=== PATIENT | male | born 1955 | race Caucasian/White ===

== ENCOUNTER → 2023-11-13 06:10 | Day surgery (SDC) | payer MEDICARE, SELFPAY ==
[2023-11-13 12:43] LABS: Glucose - Point of Care 102 mg/dl (70-99)
== END ==
LOC: GI 06:10
PROVIDERS: ATTENDING PHYSICIAN Specialist
DX: Z12.11 Encounter for screening for malignant neoplasm of colon (principal); D12.2 Benign neoplasm of ascending colon; D12.3 Benign neoplasm of transverse colon; K63.5 Polyp of colon; K57.30 Diverticulosis of large intestine without perforation or abscess without bleeding; K29.70 Gastritis, unspecified, without bleeding; K31.7 Polyp of stomach and duodenum; R10.33 Periumbilical pain
CPT/HCPCS: 45385; 43239; 88305; 82962; 88342

== ENCOUNTER 2024-01-11 09:17 | Day surgery (SDC) | payer MEDICARE, SELFPAY ==
[2024-01-11] VITALS (11 sets, daily range): BP systolic 95–125; BP diastolic 55–81; BMI 28.7
[2024-01-11] MEDS: NSS 313 ML IV (10:39)
[2024-01-11] MEDS: NSS 1000 IV (12:45)
--- NOTE | 2024-01-11 12:47 | ITS.CL.CATH ---
Estate Administrator - Catheterization
Cardiac Catheterization
Procedure Report:
CARDIAC CATHETERIZATION REPORT
Date of Procedure: 01/11/2024
Referring: Jose Elias Ram MD
Indication: Recent episode of sustained VT with syncope requiring ICD shock while on exercise treadmill
HEMODYNAMIC DATA
AO: 118/63
LV: 118/26
LEFT VENTRICULOGRAPHY: The left ventricle is dilated. There is anterolateral and apical akinesis. The visually estimated ejection fraction is 25%
CORONARY ANGIOGRAPHY
Dominance: Right
Left Main: Normal
LAD: The proximal LAD stent placed in June 2021 for acute STEMI is widely patent with no restenosis. The remainder of the LAD system has mild luminal irregularities
Circumflex: Mild luminal irregularities
RCA: Mild luminal irregularities
Closure Device: None-the procedure was performed via the right radial artery. The Dani's test was normal prior to the procedure.
Radiation (mGy): 321
DAP (cm2.Gy): 26.8
Fluoroscopy time: 3.2 minutes
CONCLUSIONS
1: Elevated LVEDP
2: LVE with anterolateral and apical akinesis with EF 25%
3. Widely patent proximal LAD stent with otherwise mild residual CAD
4. Continue amiodarone 200 mg twice daily (recently started) and GDMT for LV dysfunction
Copy to: Jose Elias Ram MD, Vaughn Chiang DO
Jose Elias Ram MD, [facility], [facility]
--- NOTE | 2024-01-11 14:00 | PTCARENOTE ---
Report received from Brigette PAYAN for lunch relief. Patient resting comfortably without complaint at this time. VSS. Left radial puncture site clean, dry, & intact with radial band on.
== END 2024-01-11 15:40 | disposition home or self-care (01) ==
LOC: CATH 09:17
PROVIDERS: ATTENDING PHYSICIAN Internal Medicine Cardiovascular Disease; FAMILY PHYSICIAN Family Medicine
DX: I25.10 Atherosclerotic heart disease of native coronary artery without angina pectoris (principal); I51.7 Cardiomegaly; I47.29 Other ventricular tachycardia; R55 Syncope and collapse; Z95.5 Presence of coronary angioplasty implant and graft; I25.2 Old myocardial infarction; Z79.899 Other long term (current) drug therapy
CPT/HCPCS: 93458; C1894; Q9967

== ENCOUNTER → 2024-01-18 11:00 | Outpatient (REF) | payer MEDICARE, SELFPAY | LOC: HWRCS 11:00 | PROVIDERS: ATTENDING PHYSICIAN Internal Medicine Cardiovascular Disease; FAMILY PHYSICIAN Family Medicine | DX: I25.5 Ischemic cardiomyopathy (principal) | CPT/HCPCS: 93306 ==

== ENCOUNTER → 2024-02-22 07:55 | Outpatient (REF) | payer MEDICARE, SELFPAY | LOC: RSP 07:55 | PROVIDERS: ATTENDING PHYSICIAN Nurse Practitioner; FAMILY PHYSICIAN Family Medicine | DX: I47.20 Ventricular tachycardia, unspecified (principal) | CPT/HCPCS: 94727; 94729; 88738; 94010 ==

== ENCOUNTER 2024-08-05 20:26 | Inpatient (IN) | payer MEDICARE, SELFPAY ==
[2024-08-05] VITALS (9 sets, daily range): BP systolic 97–129; BP diastolic 56–78; BMI 29.5; BMI 29.2; BMI 28.7
[2024-08-05 15:43] LABS: % Basophils 0.6 % (0-2); % Eosinophils 1.6 % (0-6); % Immature Granulocytes 0.2 % (0-0.5); % Lymphocytes 15.2 % (20.5-51.1); % Monocytes 8.7 % (1.7-9.3); % Neutrophils 73.7 % (42.2-75.2); ALT (SGPT) 61 U/L (0-50); AST (SGOT) 52 U/L (17-59); Absolute Eosinophils 0.1 10^3/uL (0-0.7); Absolute Lymphocytes 0.9 10^3/uL (1.2-3.4); Absolute Monocytes 0.5 10^3/uL (0.1-0.6); Absolute Neutrophils 4.6 10^3/uL (1.4-6.5); Albumin 4.5 g/dl (3.5-5.0); Alkaline Phosphatase 55 U/L (38-126); Blood Urea Nitrogen 25 mg/dl (9-20); Calcium 9.6 mg/dl (8.4-10.2); Carbon Dioxide 25 mmol/L (22-30); Chloride 100 mmol/L (98-107); Estimated Creatinine Clearance 73 ml/min; Glucose 135 mg/dl (70-99); Hematocrit 48.9 % (39.0-52.0); Hemoglobin 16.3 g/dL (13.0-18.0); Mean Corp Hgb Conc. 33.3 g/dL (33.0-37.0); Mean Corpuscular Hgb 32.1 pg (27.0-31.0); Mean Corpuscular Volume 96.3 fL (80.0-94.0); Mean Platelet Volume 11.7 fL (7.4-10.4); Nucleated Red Blood Cells % 0 % (-); Platelet Count 152 10^3/uL (130-400); Potassium 4.3 mmol/L (3.5-5.1); Red Blood Cell Count 5.08 10^6/uL (4.70-6.10); Red Cell Dist. Width 13.7 % (11.5-14.5); Sodium 141 mmol/L (135-145); Total Bilirubin 1.3 mg/dl (0.2-1.3); White Blood Cell Count 6.2 10^3/uL (4.8-10.8); eGFR > 60.00
[2024-08-05 15:54] LABS: Troponin I 0.017 ng/ml
--- NOTE | 2024-08-05 15:54 | ED.GENMED ---
History of Present Illness
General
Chief Complaint: Chest Pain
Source: patient, records and spouse
Exam Limitations: none
Time Seen by Provider: 08/05/24 15:25
Nursing documentation reviewed up to this point in time: agreed with
History of Present Illness
History of Present Illness:
69-year-old male presents with chest pain onset an hour and a half ago while resting describes a pressure in his chest, did go to his jaw mildly short of breath, not nearly as severe as when he had his AR, took a nitroglycerin, called 911 was given
4 baby aspirin another nitroglycerin pain is almost gone when I saw him he has an AICD, apparently had VT while on a treadmill at the gym with syncope, takes Eliquis and aspirin, genetic scientist is Dr. Smithr transitioning to Dr. Hathaway does not use
NSAIDs does not drink alcohol
Past History
Past History
ED Past Medical History: Arrthythmia (Paroxysmal atrial fibrillation), CHF (Ischemic cardiomyopathy, EF of 20 to 25% July 2021), HTN, Hypercholesterolemia, NIDDM, AR (Large anterior wall STEMI July 18, 2021), Hypothyroidism, Other (Obesity,
chronic orthopedic pain maintained on medical marijuana, gastritis) and Other (History of arthritis)
ED Past Surgical History: Cardiac (PTCA with stent to the LAD July 18, 2021; A. fib cardioversion July 22, 2021), Cholecystectomy, Orthopedic (bilateral hip replacement, left knee replacement, right shoulder replacement) and Urological
(Vasectomy)
Social History
Tobacco: Non-smoker
Alcohol: None
Drug: Marijuana (Medical marijuana)
Personal:
Living: with family
Employment: Retired
Family History
Family History: CAD
Phy Exam
Physical Exam
Physical Exam:
Physical Exam
General: no apparent distress, not acutely ill
Neck: No JVD
Heart: s1/s2 regular rate and rhythm, no murmur. equal radial pulses.
Lungs: no acute respiratory distress. clear bilaterally
Abdomen: Nontender
Neuro: alert and oriented. no focal neurological deficits
Skin: no rash
Psychiatric: well kept. interactive and cooperative
Extremities: no edema. no calf tenderness.
Scores
Heart Score for Chest Pain Patients
STEMI patient?: No
History: Moderately Suspicious
ECG: Nonspecific Repolarization
Age: >/= 65 years
Risk Factors: >/= 3 Risk Factors or History of CAD
Troponin: >1 - <3 x Normal Limit
Heart Score for Chest Pain Patients: 7
Heart Score Risk: 72.7 % MACE over next 6 weeks
Course
Orders/Labs/Results
Orders:
Orders
08/05/24 14:58
EKG [Electrocardiogram (*1)] Urgent
Reason for Study: Chest Pain
EKG- Treatment ONCE
08/05/24 15:22
Complete Blood Count/With Diff Urgent
Comprehensive Metabolic Panel Urgent
Lipase Urgent
Troponin I Urgent
08/05/24 15:39
CR Chest - 2 Views Urgent
Comment:
Reason For Exam: cp
08/05/24 15:40
Add On- LAB Urgent
Tests Added?: lipase
Nitroglycerin Sublingual [Nitrostat (Sublingual)] 0.4 mg SL [id number] PRN
08/05/24 16:08
CARDIOLOGY CONSULT Urgent
Consulting Provider: Kishan Hallman
Was physician already notified: Yes
08/05/24 18:34
Troponin I Urgent
08/05/24 19:30
EKG [Electrocardiogram (*1)] Urgent
Reason for Study: Other
Other Reason for Exam: repeat due to increased trop
08/05/24 19:31
EKG- Treatment ONCE
Abnormal Lab Results
08/05/24 08/05/24
15:22 18:34
MCV 96.3 H fL
(80.0-94.0)
MCH 32.1 H pg
(27.0-31.0)
MPV 11.7 H fL
(7.4-10.4)
Absolute Lymphs (auto) 0.9 L 10^3/uL
(1.2-3.4)
Lymphocytes % 15.2 L %
(20.5-51.1)
BUN 25 H mg/dl
(9-20)
Glucose 135 H mg/dl
(70-99)
ALT 61 H U/L
(0-50)
Troponin I 1.600 H* D ng/ml
08/05/24 15:22
08/05/24 15:22
Vital Signs
Initial and Last Documented VS:
Initial Vital Signs
Pulse Resp
74 12
08/05/24 14:59 08/05/24 14:59
Last Documented Vital Signs
Temp Pulse Resp BP Pulse Ox
98.3 F 73 14 127/78 97
08/05/24 15:06 08/05/24 19:25 08/05/24 19:25 08/05/24 19:24 08/05/24 19:25
MDM/Problems Addressed
Differential Diagnosis Includes:
ACS reflux GERD pancreatitis doubt PE as he is anticoagulated
MDM/Problems Addressed:
Chest pain
Chronic conditions affecting care: DM, HTN, CAD and Cardiomyopathy
Acute Exacerbation and/or Progression of Chronic Illness: DM, HTN, CAD, Cardiomyopathy and Arrhythmia
*Radiology
Radiology exam reviewed: preliminary read by ED provider and radiology read reviewed
*Pulse Oximetry
Patient hypoxic: no
*EKG
Interpreted by ED Provider?: Yes
Interpretation: abnormal
Comparison EKG: no comparison EKG present
Heart Rate: 7
Rate: normal
Rhythm: ventricular paced
Ischemia: non-specific ST changes
*Butcher Supervisor Interpretation
Rate: normal
Interpretation: normal
Heart Rate: 78
Rhythm: ventricular paced
*Critical Care Note
Total Time (30-74mins, 75-104mins- exclusive of procedures): 31
comment:
31
Update Note
Update Note:
4 PM, troponin noted, chest x-ray pending consult requested from cardiology
7:30 PM second troponin noted, patient resting comfortably, reviewed with cardiology admit to the hospitalist service hold Eliquis start unfractionated heparin
ED Attending Note
-
Portions of this chart may have been created with voice recognition software.� Occasional wrong word or��sound alike� substitutions may have occurred due to the inherent limitations of voice recognition software.
Discharge Plan
Departure
Patient Disposition: Admit
Date of Disposition: 08/05/24
Time of Disposition: 19:35
Admit to: IVU
Presentation/result/management discussed w/ accepting MD/DO: Hospitalist
Patient with high blood pressure during this ER visit?: No
Discharge Problem:
ACS (acute coronary syndrome)
Prescriptions:
No Action
aspirin 81 mg Tablet,Delayed Release (Dr/Ec)
81 mg PO DAILY
nitroglycerin [Nitrostat] 0.4 mg Tablet, Sublingual
0.4 mg SUBLINGUAL Q5M PRN (Reason: Chest Pain)
atorvastatin 40 MG tablet
40 mg PO HS
levothyroxine 50 mcg Capsule
50 mcg PO DAILY
Centrum Silver Men [id number] mcg Tablet
1 tab PO DAILY
Eliquis 5 mg Tablet
5 mg PO BID
amiodarone 200 mg Tablet
200 mg PO BID
Jardiance 10 mg Tablet
10 mg PO DAILY
triamcinolone acetonide 0.1 % cream
1 applic TOPICAL BIDPRN PRN (Reason: rash areas on back, arms)
lisinopril 2.5 mg tablet
2.5 mg PO BID
Referrals:
Vaughn Chiang, DO [Family Provider] -
Interventions
Interventions:
*Risk Screen - Suicide Last Done: 08/05/24 15:06
*General Assessment Last Done: 08/05/24 15:06
*Neglect/Abuse Screening Last Done: 08/05/24 15:06
ED- Fall Risk Assessment Last Done: 08/05/24 15:17
*ED COVID-19 Vaccine History Last Done: 08/05/24 15:06
ED- Cardiac Assessment Last Done: 08/05/24 15:17
Discharge Date and Time
Print Language: KAZAKH
--- NOTE | 2024-08-05 16:32 | CON.CAR ---
Addendum entered and electronically signed by Kishan Hallman MD 08/05/24 18:32:
69 yo male with PMH of CAD s/p LAD stent 2020, ICM EF 20-25%, VT, BiV ICD presents to ED with chest pain. Approx 1 hour after lunch, he was sitting at desk paying bills, and experienced mid sternal chest pain. He took SL nitro, and called EMS.
EMS gave additional SL nitro, and transported to ED. Patient also reports belching as well. Patient chest pain free in ED. The pain feels different from prior MT. Exam with RRR, no murmurs, no edema. EKG shows BiV pacing. TnI 0.017. Last cath
12/2023 showed patent LAD stents, and LI otherwise. Care Link: no arrhythmias.
Chest pain is different from prior MT. Could be GI in origin.
Will check second troponin: if trending up, will be admitted for additional evaluation. If remains normal, will follow up in outpatient setting.
Original Note:
Consultation
Consultation Request
Date/Time Consultation Requested: 08/05/2024 16:10
Date/Time Consultation Performed: 08/05/2024 16:15
Requesting Provider: Dr. Horne
Performing Provider: JAMEEL Arndt for Dr. Hallman
Reason for Consultation: Chest pain
Medical History
-
Chief Complaint: Chest pain
History of Present Illness:
Patient is a 69-year-old male (known to Dr. Ram, his primary spray dyer), with ischemic cardiomyopathy (LVEF 20-25%), ventricular tachycardia status post BiV ICD (on amiodarone), coronary artery disease (LAD stent), and paroxysmal atrial
fibrillation who presented to the emergency department with a chief complaint of chest discomfort. At approximately 2 PM he had the sudden onset of chest tightness. It was midsternal and anterior. It started at 4/10 and worsened to 7/10 prompting
him to take a sublingual nitroglycerin. He had weakness in his right hand. He started belching. He had lunch 1 hour prior ([employer]). Very briefly he had jaw discomfort (less than 30 seconds). He called EMS. EMS gave him aspirin 324
mg and an additional sublingual nitroglycerin. He is currently chest pain-free in the emergency department.
Brief history: In December 2023 he had an episode of ventricular tachycardia that degenerated to ventricular fibrillation requiring ICD shock. At that time he was at the gym and on the treadmill when he became lightheaded and had syncope. Cardiac
catheterization demonstrated patent LAD stent and mild luminal irregularities in the RCA and left circumflex. His LVEF was unchanged at 25-30%.
Past Medical History
Past Medical History: Arrhythmias (Paroxysmal atrial fibrillation, ventricular tachycardia), CAD, CHF (HFrEF, ICM), Hypercholesterolemia and Hypothyroidism
Past Surgical History: Cholecystectomy and Orthopedic
Social History
Tobacco: Non-Smoker
Alcohol: None
Drug: None
Personal:
Living: With Family
Employment: Retired
Family History
Family History: Reviewed & Not Pertinent
Allergies / Home Medications
Allergy/AdvReac Type Severity Reaction Status Date / Time
No Known Allergies Allergy Verified 01/11/24 09:24
�Medication �Instructions �Recorded �Confirmed �Type
aspirin 81 mg tablet,delayed 81 mg PO DAILY Blood Clot 11/14/22 08/05/24 History
release Prevention/Tx
atorvastatin 40 mg tablet 40 mg PO HS High Cholesterol 11/14/22 08/05/24 History
levothyroxine 50 mcg capsule 50 mcg PO DAILY hypothyroidism 11/14/22 08/05/24 History
nitroglycerin 0.4 mg sublingual 0.4 mg sublingual Q5M PRN Chest 11/14/22 08/05/24 History
tablet (Nitrostat) Pain
amiodarone 200 mg tablet 200 mg PO BID Heart 01/11/24 08/05/24 History
Disease/Condition
apixaban 5 mg tablet (Eliquis) 5 mg PO BID Blood Clot 01/11/24 08/05/24 History
Prevention/Tx
empagliflozin 10 mg tablet 10 mg PO DAILY Heart 01/11/24 08/05/24 History
(Jardiance) Disease/Condition
skoliumq-kk-dgdve 300 mcg-K 60 1 tab PO DAILY Supplement 01/11/24 08/05/24 History
mcg-lycop 600 mcg-lutein 300 mcg
tablet (Centrum Silver Men)
lisinopril 2.5 mg tablet 2.5 mg PO BID Blood Pressure 08/05/24 08/05/24 History
triamcinolone acetonide 0.1 % 1 applic topical BIDPRN PRN rash 08/05/24 08/05/24 History
topical cream areas on back, arms
Review of Systems
-
History Source: Patient
All other systems: Negative unless noted
Constitutional: No Symptoms
EENT: No Symptoms
Respiratory: No Symptoms
Cardiac: No Symptoms
Abdomen/GI: No Symptoms
: No Symptoms
Musculoskeletal: No Symptoms
Skin: No Symptoms
Neurological: No Symptoms
Endocrine: No Symptoms
Hematologic/Lymphatic: No Symptoms
Physical Exam
Vital Signs
Temp Pulse Resp BP Pulse Ox
98.3 F 57 12 129/64 97
08/05/24 15:06 08/05/24 16:00 08/05/24 16:00 08/05/24 16:00 08/05/24 16:00
Lab Results
08/05/24 15:22
08/05/24 15:22
Troponin I 0.017 ng/ml 08/05/24 15:22
Physical Exam
General: Well Developed, Well Nourished, No Apparent Distress and Comfortable
HEENT: Normocephalic, Anicteric and Moist Mucous Membranes
Respiratory: Clear and Non Labored Respirations
Cardiac: S1/S2 and Regular Rhythm; Negative Peripheral Edema
Breast: Deferred by me
GI: Soft, Non Tender, Non Distended and Normal Bowel Sounds
Rectal: Deferred by Provider
Genito-urinary: Costovertebral Angle Tend
Musculoskeletal: No Clubbing, No Cyanosis and No Edema
Skin: Warm and Dry
Neuro: AO x 3
Hematologic/Lymphatic: No Lymphadenopathy
Psych: Calm
Impression / Plan
-
Chest pain
-Currently chest pain-free
-EKG shows AV pacing
-Initial troponin 0.017
-CXR pending
Ischemic cardiomyopathy (LVEF 25 to 30%)
-He does not appear to be in acute/decompensated heart failure
-He does not require standing diuretic to maintain euvolemia
-GDMT is limited by blood pressure
-SYLVIA/ARB/ARNI: Lisinopril 2.5 mg twice daily (he did not tolerate Entresto)
-SGLT2: Jardiance 10 mg daily
-ICD: Medtronic
-Continue daily weight and low-sodium diet
Coronary artery disease
-STEMI 06/2021 with pLAD occlusion status post PCI, peak troponin >400
-C 12/2023 showed patent LAD stent and mild luminal irregularities in RCA and left circumflex, medical management
-He is on apixaban/ASA and atorvastatin
Paroxysmal atrial fibrillation
Ventricular tachycardia, status post Medtronic BiV ICD, on amiodarone (started after ICD shock)
HLD, on atorvastatin
Prediabetes
Data Reviewed
-
EKG: Report Reviewed by me (AV paced rhythm, rate 72)
Medical Tests (Nuc Med, Echo etc): Report Reviewed by me (Prior echocardiogram and cardiac catheterization as above)
Labs: Labs Reviewed by me
Old Records: Reviewed
[2024-08-05 17:14] LABS: Lipase 235 U/L (23-300)
--- NOTE | 2024-08-05 20:13 | HPS.HSE ---
Addendum entered and electronically signed by Will Sales DO 08/05/24 21:37:
Patient seen and examined independently. Agree with findings and plan as set forth by Tiffanie Herbert PA-C.
Patient is a 69y M with PMH significant for ASCVD, HTN and A-Fib who presents to ED complaining of chest pain. Patient reports substernal chest tightness that started around 2PM this afternoon while at rest. Some radiation to the jaw. No
associated nausea, dyspnea, diaphoresis, etc.
In the ED, patient is noted to have significant elevation in troponin on the second set.
He is currently pain-free.
Ass:
NSTEMI
ASCVD
Ischemic Cardiomyopathy
Paroxysmal Atrial Fibrillation
VT s/p AICD
Benign Hypertension
Hypothyroidism
Impaired Fasting Glucose
Plan:
Admit to IVU for further evaluation and treatment.
Continue IV heparin gtt.
Follow troponin to peak.
Follow for any new / recurrent symptoms during stay.
Appreciate Cardiology evaluation. Likely for cath in the AM.
Check lipid panel, A1C, etc.
Continue amiodarone, ASA, etc.
Original Note:
Family Physician
-
Family Physician: Vaughn Chiang
Chief Complaint
-
Chest Pain
History of Present Illness
Patient is a 69 y/o male past medical history of CAD s/p LAD Stent, ICM, HTN, A-Fib, Pre-Diabetes who presents with chest pain. Patient reports acute onset of mid-sternal chest tightness around 2PM this afternoon. He reports pain worsened prompting
to him to call EMS. Prior to EMS he did take a SL nitro, and EMS gave him a second dose. He reports symptoms improved, and he was chest pain free upon my evaluation.
Medical History
Past Medical History
Past Medical History: Reports Other
Additional Past Medical History:
Coronary Artery Disease s/p LAD Stent in 2020
Ischemic Cardiomyopathy (EF 20-25%)
Paroxysmal Atrial Fibrillation
Ventricular Tachycardia s/p BiV ICD
Essential Hypertension
Pre-Diabetes
Hyperlipidemia
Hypothyroidism
Past Surgical History: Reports Other
Additional Past Surgical History:
Cholecystectomy
Bilateral Shoulder Replacements
Bilateral Hip Replacements
Left Knee Replacement
Social History
Tobacco: Non-smoker
Alcohol: Occasional
Family History
Family History: Not pertinent
Allergies / Home Medications
Allergies reflects when Allergies were last updated in [facility].
Home Medications with original date entered in [facility]
Allergy/Medication List:
Allergies
Allergy/AdvReac Type Severity Reaction Status Date / Time
No Known Allergies Allergy Verified 01/11/24 09:24
Home Medications
aspirin 81 mg tablet,delayed release 81 mg PO DAILY Blood Clot Prevention/Tx 11/14/22
atorvastatin 40 mg tablet 40 mg PO HS High Cholesterol 11/14/22
levothyroxine 50 mcg capsule 50 mcg PO DAILY hypothyroidism 11/14/22
nitroglycerin 0.4 mg sublingual tablet (Nitrostat) 0.4 mg sublingual Q5M PRN Chest Pain 11/14/22
amiodarone 200 mg tablet 200 mg PO BID Heart Disease/Condition 01/11/24
apixaban 5 mg tablet (Eliquis) 5 mg PO BID Blood Clot Prevention/Tx 01/11/24
empagliflozin 10 mg tablet (Jardiance) 10 mg PO DAILY Heart Disease/Condition 01/11/24
omsrjkhb-fo-mkjgw 300 mcg-K 60 mcg-lycop 600 mcg-lutein 300 mcg tablet (Centrum Silver Men) 1 tab PO DAILY Supplement 01/11/24
lisinopril 2.5 mg tablet 2.5 mg PO BID Blood Pressure 08/05/24
triamcinolone acetonide 0.1 % topical cream 1 applic topical BIDPRN PRN rash areas on back, arms 08/05/24
Review of Systems
-
A 12 point ROS was completed and negative except as noted: Yes
Constitutional: Denies Fever or Chills
Respiratory: Denies Cough or Trouble Breathing
Cardiac: Reports See HPI
Physical Exam
Vital Signs
Vital Signs
Temp Pulse Resp BP Pulse Ox
98.3 F 73 14 127/78 97
08/05/24 15:06 08/05/24 19:25 08/05/24 19:25 08/05/24 19:24 08/05/24 19:25
Physical Exam
General: Comfortable and Conversant
HEENT: Anicteric and Moist mucous membranes
Respiratory: Clear and Non Labored Respirations
Cardiac: S1/S2 and Regular Rhythm
GI: Soft and Non Tender
Rectal: Deferred by Provider
Musculoskeletal: No Clubbing, No Cyanosis and No Edema
Skin: Warm and Dry
Neuro: Awake, Alert, Oriented and Nonfocal/grossly intact
Psych: Calm
Laboratory Results
-
08/05/24 15:22
08/05/24 15:22
Laboratory Results
Total Bilirubin 1.3 mg/dl (0.2-1.3) 08/05/24 15:22
AST 52 U/L (17-59) 08/05/24 15:22
ALT 61 U/L (0-50) H 08/05/24 15:22
Alkaline Phosphatase 55 U/L (38-126) 08/05/24 15:22
Troponin I 1.600 ng/ml H* D 08/05/24 18:34
Lipase 235 U/L (23-300) 08/05/24 15:22
Data Reviewed
-
Lab Data: Labs Reviewed by me
Impression/Plan
-
NSTEMI / ACS
-Consult Cardiology
-Continue heparin drip
-Continue Nitro SL PRN
-NPO after midnight for likely cardiac cath in AM
Coronary Artery Disease s/p LAD Stent in 2020
-Continue aspirin
Ischemic Cardiomyopathy (EF 20-25%)
-Jardiance on hold
-Monitor Is&Os and Daily Weights
Paroxysmal Atrial Fibrillation
-Heparin drip in place of Eliquis
-Continue amiodarone
Ventricular Tachycardia s/p BiV ICD
-Continue Amiodarone
Essential Hypertension
-Continue lisinopril
Hyperlipidemia
-Continue Lipitor
Pre-Diabetes
-Check HgbA1c
Hypothyroidism
-Continue levothyroxine
DVT proph: Heparin Drip
Code Status: Full Code
[2024-08-05 20:33] LABS: APTT 33.4 Sec (23.4-35.0)
[2024-08-05] MEDS: HEPARIN 4000 UNITS IV (20:45)
[2024-08-05] MEDS: HEPARIN 25000 UNITS/250 ML IV (20:46)
[2024-08-05] MEDS: PACERONE 200 MG PO (22:28)
[2024-08-05] MEDS: LIPITOR 40 MG PO (22:28)
--- NOTE | 2024-08-05 23:34 | PTCARENOTE ---
Pt rec'd from ED awake,alert no c/o cp or sob. adm hx taken and recorded Heparin gtt infusing via left hand. 3rd troponin resulted at 3.310. Pt aware of npo status after mn for cath in am. Spouse at bedside wants to stay the night.
[2024-08-06] VITALS (15 sets, daily range): BP systolic 90–120; BP diastolic 55–78; BMI 28.4
[2024-08-06 03:48] LABS: APTT 86.6 Sec (23.4-35.0)
[2024-08-06 04:05] LABS: Blood Urea Nitrogen 21 mg/dl (9-20); Carbon Dioxide 26 mmol/L (22-30); Chloride 105 mmol/L (98-107); Estimated Creatinine Clearance 80 ml/min; Glucose 86 mg/dl (70-99); HDL Cholesterol 59 mg/dl; LDL Cholesterol, Calculated 22 mg/dl; Sodium 141 mmol/L (135-145); Total Cholesterol 89 mg/dl (50-199); Triglyceride 43 mg/dl (10-149); Very Low Density Lipoprotein 8 mg/dl (0-30); eGFR > 60.00
[2024-08-06 04:08] LABS: Hematocrit 43.7 % (39.0-52.0); Hemoglobin 14.6 g/dL (13.0-18.0); Mean Corp Hgb Conc. 33.4 g/dL (33.0-37.0); Mean Corpuscular Hgb 32.2 pg (27.0-31.0); Mean Corpuscular Volume 96.3 fL (80.0-94.0); Mean Platelet Volume 11.4 fL (7.4-10.4); Platelet Count 136 10^3/uL (130-400); Red Blood Cell Count 4.54 10^6/uL (4.70-6.10); Red Cell Dist. Width 13.7 % (11.5-14.5); White Blood Cell Count 6.4 10^3/uL (4.8-10.8)
[2024-08-06] MEDS: SYNTHROID 50 MCG PO (07:11)
[2024-08-06] MEDS: PACERONE 200 MG PO ×2 (08:37→20:04)
[2024-08-06] MEDS: ASPIR LOW (ENTERIC COATED) 81 MG PO (08:37)
[2024-08-06 08:38] LABS: Glycohemoglobin (HgbA1c) 5.2 % (4.0-5.6)
[2024-08-06] MEDS: ZESTRIL 2.5 MG PO ×2 (08:38→20:06)
--- NOTE | 2024-08-06 11:14 | CM ---
Chart reviewed. Patient is independent of ADLS, lives with his in a [address], 0 [address]SE RAUL, 0 DME. Plan is for the patient to return home. CM to follow
[2024-08-06 11:51] LABS: APTT 71.8 Sec (23.4-35.0)
--- NOTE | 2024-08-06 12:43 | ITS.CL.CATH ---
Neon Tube Bender - Catheterization
Cardiac Catheterization
Procedure Report:
CARDIAC CATHETERIZATION REPORT
Date of Procedure: 08/06/2024
Referring: Zana Hallman MD, PhD
Indication: Non-STEMI
�
HEMODYNAMIC DATA
AO: 108/59
LV: 108/21
�
LEFT VENTRICULOGRAPHY: Dilated left ventricle with severe anterolateral and anteroapical hypokinesis. The visually estimated EF is 30%
�
CORONARY ANGIOGRAPHY
Dominance: Right
Left Main: Normal
LAD: There is a widely patent stent with no restenosis extending from near the ostium of the LAD into the midportion (LIAM 2020). The remainder of the LAD system has mild luminal irregularities
Circumflex: Mild luminal irregularities
RCA: Mild luminal irregularities in the RCA proper. The RPDA has diffuse disease
�
Closure Device: 6 [place] Angio-Seal RFA. Of note the right radial artery pulse was absent and we performed the procedure from the RFA
�
Radiation (mGy): 346
DAP (cm2.Gy): 27.1
Fluoroscopy time: 1.7 minutes
�
CONCLUSIONS
1:�Dilated LV with severe anterolateral and anteroapical hypokinesis with EF 30%-this is similar to the prior study from December 2023 and may actually be slightly improved
2:�Stable CAD as described. There is no obvious culprit for his non-STEMI (peak Trop 3.4)-cannot exclude the mid RPDA as a culprit lesion sitel but clearly no appropriate interventional target in this small branch
�
�
Copy to: Jose Elias Ram MD, Vaughn Chiang,
�
Jose Elias Ram MD, [facility], [facility]
[2024-08-06] MEDS: NSS 1000 IV (13:04)
--- NOTE | 2024-08-06 13:57 | W.PN.HOSP.TC ---
Today's Communication/Plan
-
Left heart catheterization report reviewed
Await further recommendation from cardiology
Assessment / Plan
Assessment / Plan
LHC
Left Main: Normal
LAD: There is a widely patent stent with no restenosis extending from near the ostium of the LAD into the midportion (LIAM 2020). The remainder of the LAD system has mild luminal irregularities
Circumflex: Mild luminal irregularities
RCA: Mild luminal irregularities in the RCA proper. The RPDA has diffuse disease

Chest pain
NSTEMI
h/o Coronary Artery Disease s/p LAD Stent in 2020
-Status post left heart catheterization showing patent LAD stents. EF 30%, identical to previous echocardiogram
-Patient on GDMT,
-Cardio to decide further management plan
Ischemic Cardiomyopathy (EF 20-25%)
Chronic systolic HF
-Resumption of meds post cath per cardiology
-No signs of heart failure exacerbation on exam today
-Monitor Is&Os and Daily Weights
Paroxysmal Atrial Fibrillation
-Heparin drip in place of Eliquis
-Continue amiodarone
Ventricular Tachycardia s/p BiV ICD
-Continue Amiodarone
Essential Hypertension
-Continue lisinopril
Hyperlipidemia
-Continue Lipitor
Pre-Diabetes
-Hbga1c 5.2
Hypothyroidism
-Continue levothyroxine
DVT proph: Heparin Drip
Code Status: Full Code
Anticipated Discharge: Within 24 hours
Subjective/Interval History
-
Date of Service: August 06, 2024
Denies of having any chest pain overnight
No dyspnea
Has some bloating, denies of nausea/constipation
Objective Data
-
Labs:
Laboratory Results
08/06/24 08/06/24 08/06/24
03:24 03:25 11:23
WBC 6.4
Hgb 14.6
Hct 43.7
Plt Count 136
APTT 86.6 H 71.8 H
Sodium 141
Potassium 4.0
Chloride 105
Carbon Dioxide 26
BUN 21 H
Creatinine 1.1
Glucose 86
Calcium 9.0
Vital Signs:
Vital Signs
Temp Pulse Resp BP Pulse Ox
98.3 F 71 18 120/78 95
08/06/24 12:40 08/06/24 11:30 08/06/24 12:40 08/06/24 08:38 08/06/24 12:40
I&O
08/05/24 08/06/24 08/07/24
06:59 06:59 06:59
Intake Total 240 / 240
Balance 240 / 240
Review of Systems
-
Respiratory: Reports No Symptoms
Cardiac: Denies Chest Pain, Diaphoresis or Palpitations
Abdomen/GI: Reports Bloated; Denies Nausea, Vomiting or Constipated
Physical Exam
-
General: Comfortable and Morbidly Obese
HEENT: Negative Oxygen
Respiratory: Clear to Auscultation
Cardiac: Regular Rhythm and S1/S2; Negative Murmur or Rub
GI: Soft, Nontender, Nondistended and Normal Bowel Sounds
Musculoskeletal: No Edema
Neuro: Awake, Alert, Oriented, No Motor Deficits and Nonfocal/Grossly Intact
Psych: Calm
[2024-08-06] MEDS: ELIQUIS 5 MG PO (20:03)
[2024-08-06] MEDS: LIPITOR 40 MG PO (22:38)
--- NOTE | 2024-08-07 00:05 | PTCARENOTE ---
Rec'd pt at change of shift. Pt AAO*3, in AV Paced rhythm on TELE montior, and VSS. Pt denies any pain or discomfort. Pt with R femoral dressing CDI. Pt agreed to report any bleeding or tenderness at site immediately. Pt updated on plan of care
and currently resting with call rodarte in reach. Plan of care ongoing.
[2024-08-07 02:05] VITALS: BP 107/68
[2024-08-07 02:19] VITALS: BP 107/68
[2024-08-07 03:34] LABS: Blood Urea Nitrogen 21 mg/dl (9-20); Calcium 8.8 mg/dl (8.4-10.2); Carbon Dioxide 27 mmol/L (22-30); Chloride 103 mmol/L (98-107); Estimated Creatinine Clearance 80 ml/min; Glucose 100 mg/dl (70-99); Potassium 4.2 mmol/L (3.5-5.1); Sodium 141 mmol/L (135-145); eGFR > 60.00
[2024-08-07 03:35] LABS: Hematocrit 44.3 % (39.0-52.0); Hemoglobin 14.8 g/dL (13.0-18.0); Mean Corp Hgb Conc. 33.4 g/dL (33.0-37.0); Mean Corpuscular Volume 95.7 fL (80.0-94.0); Mean Platelet Volume 12.1 fL (7.4-10.4); Platelet Count 150 10^3/uL (130-400); Red Blood Cell Count 4.63 10^6/uL (4.70-6.10); Red Cell Dist. Width 13.9 % (11.5-14.5); White Blood Cell Count 5.3 10^3/uL (4.8-10.8)
[2024-08-07 03:52] VITALS: BMI 28.5
[2024-08-07 04:04] LABS: TSH 2.22 uIU/ml (0.47-4.68)
[2024-08-07] MEDS: SYNTHROID 50 MCG PO (05:48)
[2024-08-07 07:09] VITALS: BP 101/58
--- NOTE | 2024-08-07 07:43 | PTCARENOTE ---
Received patient this morning sitting oob in the chair waiting for breakfast, states he feels good. Dressing right groin is dry and intact with a strong palpable pedal pulse. Call rodarte in reach.
[2024-08-07] MEDS: ASPIR LOW (ENTERIC COATED) 81 MG PO (08:39)
[2024-08-07] MEDS: ELIQUIS 5 MG PO (08:40)
[2024-08-07] MEDS: PACERONE 200 MG PO (08:40)
[2024-08-07] MEDS: ZESTRIL PO (08:40)
[2024-08-07] MEDS: FLUSH (NSS) 1 FLUSH IV (08:41)
--- NOTE | 2024-08-07 09:11 | W.PN.CD ---
Today's Communication / Plan
-
meds have been limited by BP
add Toprol XL 12.5mg qHS
continue lisinopril 2.5mg bid, and jardiance
continue ASA/eliquis
d/c planning
please call us with additional questions
Impression / Plan
-
ACS/NSTEMI
-no culprit on cath, EF 30%
-no arrhythmia on [facility] or tele
-discussed with interventional cards: continue ASA/eliquis
- meds have been limited by BP as outpatient
-will try adding low dose Toprol XL at bedtime
Ischemic cardiomyopathy (LVEF 25 to 30%)
-He does not appear to be in acute/decompensated heart failure
-He does not require standing diuretic to maintain euvolemia
-GDMT is limited by blood pressure
-SYLVIA/ARB/ARNI/MRA: Lisinopril 2.5 mg twice daily (he did not tolerate Entresto)
-SGLT2: Jardiance 10 mg daily (resume on d/c)
-ICD: Medtronic
-Continue daily weight and low-sodium diet
Coronary artery disease
-STEMI 06/2021 with pLAD occlusion status post PCI, peak troponin >400
-[facility] 12/2023 showed patent LAD stent and mild luminal irregularities in RCA and left circumflex, medical management
-He is on apixaban/ASA and atorvastatin
Paroxysmal atrial fibrillation
Ventricular tachycardia, status post Medtronic BiV ICD, on amiodarone (started after ICD shock)
HLD, on atorvastatin: LDL is 22
Prediabetes
Physical Exam
Vital Signs/Labs
Vital Signs
Temp Pulse Resp BP Pulse Ox
98.2 F 50 18 101/58 98
08/07/24 07:05 08/07/24 08:40 08/07/24 07:05 08/07/24 08:40 08/07/24 07:05
08/06/24 08/07/24 08/08/24
06:59 06:59 06:59
Actual Weight 107 kg 106.2 kg
08/07/24 02:15
08/07/24 02:15
APTT 71.8 Sec (23.4-35.0) H 08/06/24 11:23
Triglycerides 43 mg/dl (10-149) 08/06/24 03:24
LDL Cholesterol, Calc 22 mg/dl 08/06/24 03:24
VLDL Cholesterol, Calc 8 mg/dl (0-30) 08/06/24 03:24
HDL Cholesterol 59 mg/dl 08/06/24 03:24
TSH 2.22 uIU/ml (0.47-4.68) 08/07/24 02:15
LAB Results
08/05/24 08/05/24 08/05/24
15:22 18:34 22:21
Troponin I 0.017 1.600 H* D 3.310 H* D
08/06/24
03:25
Troponin I 3.120 H*
Physical Exam
Constitutional: No acute distress and Comfortable
EENT: Moist mucous membranes
Cardiovascular: Rhythm & rate is regular, Pedal edema is absent, JVD pressure is normal and Systolic murmur absent
Respiratory: Respiratory effort normal and Lungs clear to auscul.
GI: Soft and Distention absent
Neuro/Psych: AO x 3
Data Reviewed
-
Date of Service: August 07, 2024
EKG: Other (Tele: BiV paced, no arrhythmia)
Labs: Labs Reviewed by me
[2024-08-07 10:54] VITALS: BP 107/73
[2024-08-07] MEDS: FARXIGA 10 MG PO (11:06)
[2024-08-07] MEDS: FLUAD (65 yr+) 2024-2025 FORMULA 0.5 ML IM (11:06)
--- NOTE | 2024-08-07 12:25 | PTCARENOTE ---
Patient seen by cardiology and the hospitalist and is ok for discharge home. Reviewed discharge instructions with the patient and his and they state their understanding. Patient discharged home with his , aware of follow up appointments
scheduled.
--- NOTE | 2024-08-07 15:04 | W.PN.HOSP.TC ---
Today's Communication/Plan
-
d/c home
Assessment / Plan
Assessment / Plan
LHC
Left Main: Normal
LAD: There is a widely patent stent with no restenosis extending from near the ostium of the LAD into the midportion (LIAM 2020). The remainder of the LAD system has mild luminal irregularities
Circumflex: Mild luminal irregularities
RCA: Mild luminal irregularities in the RCA proper. The RPDA has diffuse disease

Chest pain
NSTEMI
h/o Coronary Artery Disease s/p LAD Stent in 2020
-Status post left heart catheterization showing patent LAD stents. EF 30%, identical to previous echocardiogram
-Patient on GDMT,
-Cardio recommended patient to be added on Toprol-XL 12 and half milligram at night
-Possible theory of anginal symptoms versus small clot causing initial symptoms
Ischemic Cardiomyopathy (EF 20-25%)
Chronic systolic HF
-Resumption of meds post cath per cardiology
-No signs of heart failure exacerbation on exam today
-Monitor Is&Os and Daily Weights
Paroxysmal Atrial Fibrillation
-Heparin drip in place of Eliquis
-Continue amiodarone
Ventricular Tachycardia s/p BiV ICD
-Continue Amiodarone
Essential Hypertension
-Continue lisinopril
Hyperlipidemia
-Continue Lipitor
Pre-Diabetes
-Hbga1c 5.2
Hypothyroidism
-Continue levothyroxine
DVT proph: Heparin Drip
Code Status: Full Code
Anticipated Discharge: Today
Subjective/Interval History
-
Date of Service: August 07, 2024
No further episode of chest pain overnight
No other reported issues
Objective Data
-
Labs:
Laboratory Results
08/07/24
02:15
WBC 5.3
Hgb 14.8
Hct 44.3
Plt Count 150
Sodium 141
Potassium 4.2
Chloride 103
Carbon Dioxide 27
BUN 21 H
Creatinine 1.1
Glucose 100 H
Calcium 8.8
Vital Signs:
Vital Signs
Temp Pulse Resp BP Pulse Ox
97.7 F 57 18 107/73 98
08/07/24 10:57 08/07/24 10:54 08/07/24 10:57 08/07/24 10:54 08/07/24 10:57
I&O
08/06/24 08/07/24 08/08/24
06:59 06:59 06:59
Intake Total 240 / 240 770 / 770 480 / 480
Balance 240 / 240 770 / 770 480 / 480
Review of Systems
-
Respiratory: Reports No Symptoms
Cardiac: Reports No Symptoms
Abdomen/GI: Reports No Symptoms
Physical Exam
-
General: Comfortable and Morbidly Obese
HEENT: Negative Oxygen
Respiratory: Clear to Auscultation
Cardiac: Regular Rhythm and S1/S2; Negative Murmur or Rub
GI: Soft, Nontender, Nondistended and Normal Bowel Sounds
Musculoskeletal: No Edema
Neuro: Awake, Alert, Oriented, No Motor Deficits and Nonfocal/Grossly Intact
Psych: Calm
--- NOTE | 2024-08-07 17:08 | W.DCSUMMARY ---
Discharge Summary
Discharge Data
Date of Admission: 08/05/24
Date of Discharge: 08/07/24
-
Pending Results: No
Hospital Course
Discharging Physician : Dr Brandon Ferris
Disposition : Home
Primary care physician : Dr Vaughn Chiang
Principal Discharge diagnosis :
Unstable angina
Chronic Discharge diagnosis :
Ischemic cardiomyopathy
Chronic systolic congestive heart failure
Paroxysmal atrial fibrillation
History of ventricular tachycardia post biventricular defibrillator
Essential hypertension
Hyperlipidemia
Prediabetic
Hypothyroidism
Hospital Course :
Patient is a 69-year-old male with mentioned past medical history came to ER for new onset of sternal chest pain/tightness while patient was resting. Patient had some radiation of the pain to jaw, not associated with any nausea/diaphoresis. EKG
showing paced rhythm. Troponin was minimally elevated and there was concern of patient having new ACS with known history of coronary artery disease/ischemic cardiomyopathy. Patient was started on heparin drip and cardiology was involved in care.
Patient was taken to heart cath following day which showed clean coronaries with patent LAD stent, some distal PDA disease although not attributable to patient symptoms pattern. ICD did not have any tachyarrhythmia episodes. Patient was started on
Toprol by cardiology. Potential explanation for patient chest pain episode is possible vasospastic angina versus small coronary clot which resolved by itself. Patient was discharged to home at this point with follow-up with cardiology in office.
Important imaging findings :
None
Procedure findings :
None
Discharge Plan
-
Patient Disposition: Home (Routine Discharge)
Discharge Diagnosis/Procedures: cardiac catheterization, Elevated troponin, Chest pain
Condition: Fair
Diet: Low Fat and Low Sodium
Activity: As tolerated
Driving Restrictions: No driving for 24 hours
Bathing Restrictions: OK to Shower
Stand Alone Forms: DC Instructions- Cath/EP Lab
Referrals:
Karon Tineo CRNP [Specified Professional Personl] - 08/27/24 1:00 pm (Cardiology followup appointment)
Vaughn Chiang, DO [Family Provider] - in one week
Prescriptions:
New
metoprolol succinate [Toprol XL] 25 mg tablet extended release 24 hr
12.5 mg PO HS Qty: 30 2RF
Continued
aspirin 81 mg Tablet,Delayed Release (Dr/Ec)
81 mg PO DAILY
nitroglycerin [Nitrostat] 0.4 mg Tablet, Sublingual
0.4 mg SUBLINGUAL Q5M PRN (Reason: Chest Pain)
atorvastatin 40 MG tablet
40 mg PO HS
levothyroxine 50 mcg Capsule
50 mcg PO DAILY
Centrum Silver Men [id number] mcg Tablet
1 tab PO DAILY
Eliquis 5 mg Tablet
5 mg PO BID
amiodarone 200 mg Tablet
200 mg PO BID
Jardiance 10 mg Tablet
10 mg PO DAILY
triamcinolone acetonide 0.1 % cream
1 applic TOPICAL BIDPRN PRN (Reason: rash areas on back, arms)
lisinopril 2.5 mg tablet
2.5 mg PO BID
Discharge Orders:
Discharge Patient (As Directed); Ordered 08/07/24
Ordered By: Brandon Ferris
Care Plan Goals
Care Plan Goals:
Problem: Readiness for enhanced knowledge related to diagnosis and treatment plan
Goal: Understand your diagnosis and treatment plan needs, including medications if applicable.
Instructions: Know your diagnosis, underlying causes and treatment plan options, including medications if applicable. Consult with your health care team to learn about your diagnosis and treatment plan, including medications if applicable.
Discharge Date and Time
Discharge Date/Time: 08/07/24 12:53
Print Language: GREEK
== END 2024-08-07 12:53 | disposition home or self-care (01) | DRG 281 ==
LOC: IVU 20:26
PROVIDERS: Internal Medicine Cardiovascular Disease; Physician Assistant Medical; Student in an Organized Health Care Education/Training Program; ADMITTING PHYSICIAN Hospitalist; ATTENDING PHYSICIAN Hospitalist; CONSULT PHYSICIAN Internal Medicine; EMERGENCY PHYSICIAN Emergency Medicine; FAMILY PHYSICIAN Family Medicine
PROC: B2111ZZ Fluoroscopy of Multiple Coronary Arteries using Low Osmolar Contrast (ICD-10-PCS; 2024-08-06)
PROC: B2151ZZ Fluoroscopy of Left Heart using Low Osmolar Contrast (ICD-10-PCS; 2024-08-06)
PROC: 4A023N7 Measurement of Cardiac Sampling and Pressure, Left Heart, Percutaneous Approach (ICD-10-PCS; 2024-08-06)
DX: I21.4 Non-ST elevation (NSTEMI) myocardial infarction (principal); I47.20 Ventricular tachycardia, unspecified; I50.22 Chronic systolic (congestive) heart failure; I25.5 Ischemic cardiomyopathy; I48.0 Paroxysmal atrial fibrillation; I11.0 Hypertensive heart disease with heart failure; E03.9 Hypothyroidism, unspecified; E78.00 Pure hypercholesterolemia, unspecified; I25.110 Atherosclerotic heart disease of native coronary artery with unstable angina pectoris
CPT/HCPCS: 71046; 80048; 80053; 80061; 83036; 83690; 84443; 84484; 85025; 85027; 85730; 90662; 93005; 93458; 99291; C1760; C1894; G0008; Q9967

== ENCOUNTER 2024-08-15 17:53 | Inpatient (IN) | payer MEDICARE, SELFPAY ==
[2024-08-15] VITALS (10 sets, daily range): BP systolic 93–120; BP diastolic 56–75; PULSE 77–81; BMI 28.7; BMI 28.9
--- NOTE | 2024-08-15 16:50 | ED.GENMED ---
History of Present Illness
<Aureliano Horne, - Last Filed: 08/15/24 17:31>
General
Chief Complaint: Fainting/Passed Out
Source: patient, records and ambulance crew
Exam Limitations: none
Time Seen by Provider: 08/15/24 16:41
Nursing documentation reviewed up to this point in time: agreed with
History of Present Illness
History of Present Illness:
69-year male presents with syncopal event, was cooking Thanksgiving dinner to have a beer or 2, felt dizzy and then passed out struck his head, no chest pain or shortness of breath history of CAD status post stenting history of VT has a
defibrillator seen by myself about 10 days ago with some chest pain positive troponin cath revealed nonobstructive CAD he was not stented, no changes medications no fevers no dark or bloody stools, when he had his heart attack for 5 years ago
presented with GI complaints
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
Past History
<Aureliano Horne, - Last Filed: 08/15/24 17:31>
Past History
ED Past Medical History: Arrthythmia (Paroxysmal atrial fibrillation), CHF (Ischemic cardiomyopathy, EF of 20 to 25% July 2021), HTN, Hypercholesterolemia, NIDDM, [place] (Large anterior wall STEMI July 18, 2021), Hypothyroidism, Other (Obesity,
chronic orthopedic pain maintained on medical marijuana, gastritis) and Other (History of arthritis)
ED Past Surgical History: Cardiac (PTCA with stent to the LAD July 18, 2021; A. fib cardioversion July 22, 2021), Cholecystectomy, Orthopedic (bilateral hip replacement, left knee replacement, right shoulder replacement) and Urological
(Vasectomy)
Social History
Tobacco: Non-smoker
Alcohol: None
Drug: Marijuana (Medical marijuana)
Personal:
Living: with family
Employment: Retired
Family History
Family History: CAD
Review of Systems
<Aureliano Horne, DO - Last Filed: 08/15/24 17:31>
Review of Systems
All Other Systems: Not applicable
Constitutional: Reports fatigue; Denies fever
EENT: Reports no symptoms
Respiratory: Reports no symptoms
Cardiac: Reports diaphoresis and syncope
Endocrine: Reports no symptoms
Hematologic/Lymphatic: Reports no symptoms
Psychiatric: Reports no symptoms
Phy Exam
<Aureliano Horne, DO - Last Filed: 08/15/24 17:31>
Physical Exam
Physical Exam:
Physical Exam
General: no apparent distress, not acutely ill
Neck: No tongue bite
Heart: s1/s2 regular rate and rhythm, no murmur. equal radial pulses.
Lungs: no acute respiratory distress. clear bilaterally
Abdomen: Nontender
Neuro: alert and oriented. no focal neurological deficits
Skin: no rash
Psychiatric: well kept. interactive and cooperative
Extremities: no edema.
Course
<Aureliano Horne, DO - Last Filed: 08/15/24 17:31>
Orders/Labs/Results
Orders:
Orders
08/15/24 16:41
Cardiac Monitoring- Treatment ONCE
08/15/24 16:42
Electrocardiogram (*1) Urgent
Reason for Study: Other
Other Reason for Exam: trauma
CT Cervical Spine W/o Iv Contr Urgent
Comment:
Reason For Exam: fall
CT Head W/o Iv Contrast Urgent
Comment:
Reason For Exam: fall
EKG- Treatment ONCE
CR Chest Portable - 1 View Urgent
Comment:
Reason For Exam: syncope
Reason Study Needs to be Portable: Patient Unstable
08/15/24 16:45
Complete Blood Count/With Diff Urgent
Comprehensive Metabolic Panel Urgent
Magnesium Urgent
08/15/24 16:48
Troponin I Urgent
08/15/24 17:27
Add On- LAB Routine
Tests Added?: Magnesium level
08/15/24 17:29
Amiodarone [Cordarone] 150 mg Dextrose 5%/Water 100 ml [D5w] 100 ml IV NOW
08/15/24 17:30
Amiodarone [Cordarone] 900 mg DEXTROSE 5% PVC-free BAG [D5W PVC-free BAG] 500 ml IV PER PROTOCOL
Initial Dose in mg/min:: 1
Duration of initial dose (hours):: 6
Subsequent dose in mg/min:: 0.5
Duration of subsequent dose (hours):: 18
Maximum dose in mg/min:: 1
Hold and notify provider if:: Heart rate < 60 BPM or SBP < 90 mmHg or MAP < 60 mmHg
08/15/24 17:39
Admit/Transfer Patient As Directed
Co-Sign Provider:
Level of Care: Inpatient admission
Assign to:: IVU
Physician / Group: anthony
Diagnosis: ventricular fib
Reason for Hospitalization: ventricular fib
Expected length of stay greater than two midnights?: Yes
ELOS- Estimated Length of Stay in days: 3
I certify the patient meets the requirements for IP care: Yes
PRN Pain Medication Management As Directed
May give lesser potent ordered pain med per pt: Yes
preference::
Protocol:: Medication orders for pain may be administered in a
manner that supports deferring to patient preference
when the pt is:
- Requesting an ordered lesser potent pain medication.
Least to most potent pain medications are defined
as: acetaminophen < NSAID < tramadol < opioids
(morphine, oxycodone, hydromorphone).
- Requesting a lesser dose of the same medication IF
ORDERED.
- Requesting a less intrusive route of administration
if both routes are prescribed by the provider (PO <
IV).
08/15/24 17:43
Code Status As Directed
Resuscitation Status: Full Code
08/15/24 20:00
Metoprolol Xl [Toprol Xl] 12.5 mg PO BID
Abnormal Lab Results
08/15/24
16:45
MCV 96.7 H fL
(80.0-94.0)
MCH 31.8 H pg
(27.0-31.0)
MCHC 32.8 L g/dL
(33.0-37.0)
MPV 11.0 H fL
(7.4-10.4)
Absolute Monos (auto) 0.7 H 10^3/uL
(0.1-0.6)
Monocytes % 11.6 H %
(1.7-9.3)
Glucose 136 H mg/dl
(70-99)
Total Bilirubin 1.4 H mg/dl
(0.2-1.3)
ALT 62 H U/L
(0-50)
08/15/24 16:45
08/15/24 16:45
Vital Signs
Initial and Last Documented VS:
Initial Vital Signs
Temp Pulse Resp BP Pulse Ox
98.4 F 63 20 120/70 98
08/15/24 16:43 08/15/24 16:43 08/15/24 16:43 08/15/24 16:43 08/15/24 16:43
Last Documented Vital Signs
Temp Pulse Resp BP Pulse Ox
98.4 F 60 20 108/64 99
08/15/24 16:43 08/15/24 17:39 08/15/24 17:39 08/15/24 17:39 08/15/24 17:39
<Roseann Arreola PA-C - Last Filed: 08/15/24 18:46>
Orders/Labs/Results
Orders:
Orders
08/15/24 16:41
Cardiac Monitoring- Treatment ONCE
08/15/24 16:42
Electrocardiogram (*1) Urgent
Reason for Study: Other
Other Reason for Exam: trauma
CT Cervical Spine W/o Iv Contr Urgent
Comment:
Reason For Exam: fall
CT Head W/o Iv Contrast Urgent
Comment:
Reason For Exam: fall
EKG- Treatment ONCE
CR Chest Portable - 1 View Urgent
Comment:
Reason For Exam: syncope
Reason Study Needs to be Portable: Patient Unstable
08/15/24 16:45
Complete Blood Count/With Diff Urgent
Comprehensive Metabolic Panel Urgent
Magnesium Urgent
08/15/24 16:48
Troponin I Urgent
08/15/24 17:27
Add On- LAB Routine
Tests Added?: Magnesium level
08/15/24 17:29
Amiodarone [Cordarone] 150 mg Dextrose 5%/Water 100 ml [D5w] 100 ml IV NOW
08/15/24 17:30
Amiodarone [Cordarone] 900 mg DEXTROSE 5% PVC-free BAG [D5W PVC-free BAG] 500 ml IV PER PROTOCOL
Initial Dose in mg/min:: 1
Duration of initial dose (hours):: 6
Subsequent dose in mg/min:: 0.5
Duration of subsequent dose (hours):: 18
Maximum dose in mg/min:: 1
Hold and notify provider if:: Heart rate < 60 BPM or SBP < 90 mmHg or MAP < 60 mmHg
08/15/24 17:39
Admit/Transfer Patient As Directed
Co-Sign Provider:
Level of Care: Inpatient admission
Assign to:: IVU
Physician / Group: anthony
Diagnosis: ventricular fib
Reason for Hospitalization: ventricular fib
Expected length of stay greater than two midnights?: Yes
ELOS- Estimated Length of Stay in days: 3
I certify the patient meets the requirements for IP care: Yes
PRN Pain Medication Management As Directed
May give lesser potent ordered pain med per pt: Yes
preference::
Protocol:: Medication orders for pain may be administered in a
manner that supports deferring to patient preference
when the pt is:
- Requesting an ordered lesser potent pain medication.
Least to most potent pain medications are defined
as: acetaminophen < NSAID < tramadol < opioids
(morphine, oxycodone, hydromorphone).
- Requesting a lesser dose of the same medication IF
ORDERED.
- Requesting a less intrusive route of administration
if both routes are prescribed by the provider (PO <
IV).
08/15/24 17:43
Code Status As Directed
Resuscitation Status: Full Code
08/15/24 20:00
Metoprolol Xl [Toprol Xl] 12.5 mg PO BID
Abnormal Lab Results
08/15/24
16:45
MCV 96.7 H fL
(80.0-94.0)
MCH 31.8 H pg
(27.0-31.0)
MCHC 32.8 L g/dL
(33.0-37.0)
MPV 11.0 H fL
(7.4-10.4)
Absolute Monos (auto) 0.7 H 10^3/uL
(0.1-0.6)
Monocytes % 11.6 H %
(1.7-9.3)
Glucose 136 H mg/dl
(70-99)
Total Bilirubin 1.4 H mg/dl
(0.2-1.3)
ALT 62 H U/L
(0-50)
08/15/24 16:45
08/15/24 16:45
Vital Signs
Initial and Last Documented VS:
Initial Vital Signs
Temp Pulse Resp BP Pulse Ox
98.4 F 63 20 120/70 98
08/15/24 16:43 08/15/24 16:43 08/15/24 16:43 08/15/24 16:43 08/15/24 16:43
Last Documented Vital Signs
Temp Pulse Resp BP Pulse Ox
98.4 F 60 20 108/64 99
08/15/24 16:43 08/15/24 17:39 08/15/24 17:39 08/15/24 17:39 08/15/24 17:39
Procedures
<Roseann Arreola PA-C - Last Filed: 08/15/24 18:46>
Laceration Closure
Posterior Scalp:
Status of Wound: clean
Size of Wound in cm: 2.5
Description of Wound Edges: sharp
Preparation: cleaned with saline
Anesthesia: 1% Lidocaine with epi
Wound exploration: explored to base- no FB
Type of Closure: single layer closure and interrupted sutures
Skin Closure Material: 4-0 prolene
Number of sutures: 3
Additional information:
Wound edges well approximated, not actively bleeding
<Aureliano Horne DO - Last Filed: 08/15/24 17:31>
MDM/Problems Addressed
Differential Diagnosis Includes:
Vasovagal electrolyte abnormality ventricular arrhythmia doubt primary cardiac event
MDM/Problems Addressed:
Syncope
Chronic conditions affecting care: DM, HTN, CAD, Cardiomyopathy and Arrhythmia
Acute Exacerbation and/or Progression of Chronic Illness: DM, HTN, CAD, Cardiomyopathy and Arrhythmia
<Aureliano Horne DO - Last Filed: 11/28/24 17:31>
*Radiology
Radiology exam reviewed: radiology read reviewed
*Pulse Oximetry
Patient hypoxic: no
*EKG
Interpreted by ED Provider?: Yes
Interpretation: abnormal
Comparison EKG: no comparison EKG present
Heart Rate: 78
Rate: normal
Ischemia: non-specific ST changes
*Machine Applicator Cementer Interpretation
Rate: normal
Interpretation: normal
Heart Rate: 78
Rhythm: ventricular paced
*Critical Care Note
Total Time (30-74mins, 75-104mins- exclusive of procedures): 30
Data Reviewed
Review of Other/Old Records Reveals: Labs, Records, Operative Reports, Progress Notes and Discharge Summary
Source: patient, records and ambulance crew
Prescriptions/Medications Considered But Not Given:
uFH, anti platelets
<Aureliano Horne DO - Last Filed: 08/15/24 17:31>
Update Note
Update Note:
Update [employer] called patient with 13 to 14 seconds of VF paced through it no shocks patient updated
Reviewed with cardiology hospitalist
ED Attending Note
<Aureliano Horne DO - Last Filed: 08/15/24 17:31>
-
Portions of this chart may have been created with voice recognition software.� Occasional wrong word or��sound alike� substitutions may have occurred due to the inherent limitations of voice recognition software.
Discharge Plan
Departure
Patient Disposition: Admit
Date of Disposition: 08/15/24
Time of Disposition: 17:30
Admit to: IVU
Presentation/result/management discussed w/ accepting MD/DO: Hospitalist
Condition: Fair
Discharge Problem:
VF (ventricular fibrillation), Syncope, cardiogenic
Interventions
Interventions:
*General Assessment Last Done: 08/15/24 16:41
ED- Cardiac Assessment Last Done: 08/15/24 16:51
ED- Neurological Assessment Last Done: 08/15/24 16:43
--- NOTE | 2024-08-15 16:52 | CON.CAR ---
Consultation
Consultation Request
Date/Time Consultation Requested: 08/15/2024
Date/Time Consultation Performed: 08/15/2024
Requesting Provider: Dr. Horne
Performing Provider: Dr. Bashir (primary safety tech Dr. Ram)
Reason for Consultation: syncope
Medical History
-
Chief Complaint: Chest pain
History of Present Illness:
Patient is a 69-year-old male (known to Dr. Ram, his primary safety tech), with ischemic cardiomyopathy (LVEF 20-25%), ventricular tachycardia status post BiV ICD (on amiodarone), coronary artery disease (LAD stent), and paroxysmal atrial
fibrillation who was just discharged on the for a non-STEMI without new obstructive coronary artery disease, beta-viktoriya was added to his medical regimen and now presents for syncopal episode. He reports since going home, he felt fatigued.
He did not resume beta-viktoriya use. He was able to continue with all his ADLs, he has not been exercising. He was carving the turkey, felt dizzy and went out. He did hit his head. He is on Eliquis. Currently he is feeling fine without any chest
pain or shortness of breath.
Past Medical History
Past Medical History: Arrhythmias (Paroxysmal atrial fibrillation, ventricular tachycardia), CAD, CHF (HFrEF, ICM), Hypercholesterolemia and Hypothyroidism
Past Surgical History: Cholecystectomy and Orthopedic
Social History
Tobacco: Non-Smoker
Alcohol: None
Drug: None
Personal:
Living: With Family
Employment: Retired
Family History
Family History: Reviewed & Not Pertinent
Allergies / Home Medications
Allergy/AdvReac Type Severity Reaction Status Date / Time
No Known Allergies Allergy Verified 01/11/24 09:24
�Medication �Instructions �Recorded �Confirmed �Type
aspirin 81 mg tablet,delayed 81 mg PO DAILY Blood Clot 11/14/22 08/05/24 History
release Prevention/Tx
atorvastatin 40 mg tablet 40 mg PO HS High Cholesterol 11/14/22 08/05/24 History
levothyroxine 50 mcg capsule 50 mcg PO DAILY hypothyroidism 11/14/22 08/05/24 History
nitroglycerin 0.4 mg sublingual 0.4 mg sublingual Q5M PRN Chest 11/14/22 08/05/24 History
tablet (Nitrostat) Pain
amiodarone 200 mg tablet 200 mg PO BID Heart 01/11/24 08/05/24 History
Disease/Condition
apixaban 5 mg tablet (Eliquis) 5 mg PO BID Blood Clot 01/11/24 08/05/24 History
Prevention/Tx
empagliflozin 10 mg tablet 10 mg PO DAILY Heart 01/11/24 08/05/24 History
(Jardiance) Disease/Condition
pmtrsmpn-hl-iliai 300 mcg-K 60 1 tab PO DAILY Supplement 01/11/24 08/05/24 History
mcg-lycop 600 mcg-lutein 300 mcg
tablet (Centrum Silver Men)
lisinopril 2.5 mg tablet 2.5 mg PO BID Blood Pressure 08/05/24 08/05/24 History
triamcinolone acetonide 0.1 % 1 applic topical BIDPRN PRN rash 08/05/24 08/05/24 History
topical cream areas on back, arms
metoprolol succinate 25 mg 12.5 mg (1/2 x 25 mg) PO HS #30 08/07/24 Rx
tablet,extended release 24 hr tabs
(Toprol XL)
Review of Systems
-
All other systems: Negative unless noted
Physical Exam
Vital Signs
Temp Pulse Resp BP Pulse Ox
98.4 F 63 20 120/70 98
08/15/24 16:43 08/15/24 16:43 08/15/24 16:43 08/15/24 16:43 08/15/24 16:43
Physical Exam
General: Well Developed and Well Nourished
Respiratory: Clear; Negative Wheezes, Crackles or Rhonchi
Cardiac: S1/S2 and Regular Rhythm; Negative Murmur, Rub or Peripheral Edema
GI: Soft
Neuro: AO x 3
Impression / Plan
-
Syncope due to ventricular fibrillation
-Device interrogation showed 13 seconds of ventricular fibrillation that responded to ATP paced (report from the device company, full details still not available)
-We will begin IV amiodarone load
-will add beta-viktoriya
-We will discuss with EP after review device interrogation question role of repeat study and ablation for VT?
-Update echocardiogram tomorrow
-He did hit his head on the fall, CT head pending, care as per medicine
-This is a high risk situation will require intensive monitoring in the IVU with telemetry
Ischemic cardiomyopathy (LVEF 25 to 30%)
-He does not appear to be in acute/decompensated heart failure
-He does not require standing diuretic to maintain euvolemia
-GDMT is limited by blood pressure
-BB: We will add metoprolol succinate 12.5 milligrams twice daily
-SYLVIA/ARB/ARNI/MRA: Lisinopril 2.5 mg twice daily (he did not tolerate Entresto)
-SGLT2: Jardiance 10 mg daily (resume on d/c)
-ICD: Medtronic
-Continue daily weight and low-sodium diet
-Upon discharge would recommend evaluation at advanced heart failure center
s/p [facility] last 08/06/24:
-Pk trop 3.3
-no culprit on cath, EF 30%
- meds have been limited by orthostatic dizziness complaint
-will again try adding low dose Toprol XL at bedtime
Coronary artery disease
-STEMI 06/2021 with pLAD occlusion status post PCI, peak troponin >400
-[facility] 12/2023 showed patent LAD stent and mild luminal irregularities in RCA and left circumflex, medical management
-He is on apixaban/ASA and atorvastatin
Ventricular tachycardia, status post Medtronic BiV ICD, on amiodarone (started after ICD shock)
HLD, on atorvastatin: LDL is 22
Paroxysmal atrial fibrillation
Data reviewed:
Cardiac catheterization 08/06/2024
Indication: Non-STEMI
�
HEMODYNAMIC DATA
AO: 108/59
LV: 108/21
�
LEFT VENTRICULOGRAPHY: Dilated left ventricle with severe anterolateral and anteroapical hypokinesis. The visually estimated EF is 30%
�
CORONARY ANGIOGRAPHY
Dominance: Right
Left Main: Normal
LAD: There is a widely patent stent with no restenosis extending from near the ostium of the LAD into the midportion (LIAM 2020). The remainder of the LAD system has mild luminal irregularities
Circumflex: Mild luminal irregularities
RCA: Mild luminal irregularities in the RCA proper. The RPDA has diffuse disease
�
Closure Device: 6 [place] Angio-Seal RFA. Of note the right radial artery pulse was absent and we performed the procedure from the RFA
�
Radiation (mGy): 346
DAP (cm2.Gy): 27.1
Fluoroscopy time: 1.7 minutes
�
CONCLUSIONS
1:�Dilated LV with severe anterolateral and anteroapical hypokinesis with EF 30%-this is similar to the prior study from December 2023 and may actually be slightly improved
2:�Stable CAD as described. There is no obvious culprit for his non-STEMI (peak Trop 3.4)-cannot exclude the mid RPDA as a culprit lesion sitel but clearly no appropriate interventional target in this small branch
TTE 01/18/24:
CONCLUSIONS
Severely reduced left ventricular systolic function.
Estimated left ventricular ejection fraction is 25-30%
Mild mitral regurgitation.
Compared to the previous echo 10/15/2021 there is no significant change.
�
Data Reviewed
-
EKG: Tracing Personally Visualized and interpreted (EKG shows AV pacing)
[2024-08-15 16:53] LABS: % Basophils 0.7 % (0-2); % Eosinophils 2.5 % (0-6); % Immature Granulocytes 0.2 % (0-0.5); % Monocytes 11.6 % (1.7-9.3); Absolute Eosinophils 0.2 10^3/uL (0-0.7); Absolute Lymphocytes 1.6 10^3/uL (1.2-3.4); Absolute Monocytes 0.7 10^3/uL (0.1-0.6); Absolute Neutrophils 3.6 10^3/uL (1.4-6.5); Hematocrit 46.9 % (39.0-52.0); Hemoglobin 15.4 g/dL (13.0-18.0); Mean Corp Hgb Conc. 32.8 g/dL (33.0-37.0); Mean Corpuscular Hgb 31.8 pg (27.0-31.0); Mean Corpuscular Volume 96.7 fL (80.0-94.0); Nucleated Red Blood Cells % 0 % (-); Platelet Count 165 10^3/uL (130-400); Red Blood Cell Count 4.85 10^6/uL (4.70-6.10); Red Cell Dist. Width 13.4 % (11.5-14.5); White Blood Cell Count 6.1 10^3/uL (4.8-10.8)
[2024-08-15 17:11] LABS: ALT (SGPT) 62 U/L (0-50); AST (SGOT) 57 U/L (17-59); Albumin 4.3 g/dl (3.5-5.0); Alkaline Phosphatase 52 U/L (38-126); Blood Urea Nitrogen 19 mg/dl (9-20); Calcium 9.3 mg/dl (8.4-10.2); Carbon Dioxide 27 mmol/L (22-30); Chloride 102 mmol/L (98-107); Estimated Creatinine Clearance 73 ml/min; Glucose 136 mg/dl (70-99); Magnesium 1.9 mg/dl (1.6-2.3); Potassium 4.4 mmol/L (3.5-5.1); Sodium 140 mmol/L (135-145); Total Bilirubin 1.4 mg/dl (0.2-1.3); Total Protein 6.8 g/dl (6.3-8.2); eGFR > 60.00
--- NOTE | 2024-08-15 17:11 | HPS.HSE ---
Family Physician
-
Family Physician:
Chief Complaint
-
syncopal
History of Present Illness
69-year male with PMH for A-fib, CHF, hypertension, hyperlipidemia, diabetes, hypothyroidism presents with syncopal event. Patient was prepping turkey. He went down, got up and felt dizzy. He walked to the chair but passed out before he got to
the chair. He hit his head on the door.when he woke up , he was disoriented and diaphoretic .no chest pain or shortness or chest pain. Patient denied any headache. Denied fever, chills, runny nose, congestion, cough. Patient denied abdominal
pain, nausea, vomiting, diarrhea. Patient denied dysuria hematuria.
On arrival troponin 0.033, EKG with paced rhythm. admitting for further management.
Medical History
Past Medical History
Past Medical History: Reports Other
Additional Past Medical History:
A-fib
Coronary artery disease
BPH
Hypothyroidism
V. tach
MRI
Heart failure
hyperlipidemia
Past Surgical History: Reports Other
Additional Past Surgical History:
Vasectomy
Left hip total hip replacement
Left total knee replacement
Right total hip replacement
Shoulder repair
ICD implant
Social History
Tobacco: Non-smoker
Alcohol: Occasional
Drug: None
Personal:
Living: With Family
Family History
Family History: Not pertinent
Allergies / Home Medications
Allergies reflects when Allergies were last updated in [facility].
Home Medications with original date entered in [facility]
Allergy/Medication List:
Allergies
Allergy/AdvReac Type Severity Reaction Status Date / Time
No Known Allergies Allergy Verified 01/11/24 09:24
Home Medications
aspirin 81 mg tablet,delayed release 81 mg PO DAILY Blood Clot Prevention/Tx 11/14/22
atorvastatin 40 mg tablet 40 mg PO HS High Cholesterol 11/14/22
levothyroxine 50 mcg capsule 50 mcg PO DAILY hypothyroidism 11/14/22
nitroglycerin 0.4 mg sublingual tablet (Nitrostat) 0.4 mg sublingual Q5M PRN Chest Pain 11/14/22
amiodarone 200 mg tablet 200 mg PO BID Heart Disease/Condition 01/11/24
apixaban 5 mg tablet (Eliquis) 5 mg PO BID Blood Clot Prevention/Tx 01/11/24
empagliflozin 10 mg tablet (Jardiance) 10 mg PO DAILY Heart Disease/Condition 01/11/24
rgnsfxxk-nr-mkvau 300 mcg-K 60 mcg-lycop 600 mcg-lutein 300 mcg tablet (Centrum Silver Men) 1 tab PO DAILY Supplement 01/11/24
lisinopril 2.5 mg tablet 2.5 mg PO BID Blood Pressure 08/05/24
triamcinolone acetonide 0.1 % topical cream 1 applic topical BIDPRN PRN rash areas on back, arms 08/05/24
metoprolol succinate 25 mg tablet,extended release 24 hr (Toprol XL) 12.5 mg (1/2 x 25 mg) PO HS #30 tabs 08/07/24
Review of Systems
-
Constitutional: Reports No Symptoms
EENT: Reports No Symptoms
Respiratory: Reports No Symptoms
Cardiac: Reports Diaphoresis and Syncope
Abdomen/GI: Reports No Symptoms
: Reports No Symptoms
Musculoskeletal: Reports No Symptoms
Skin: Reports No Symptoms
Neurological: Reports Dizzy
Endocrine: Reports No Symptoms
Hematologic/Lymphatic: Reports No Symptoms
Psych: Reports No Symptoms
Physical Exam
Vital Signs
Vital Signs
Temp Pulse Resp BP Pulse Ox
98.4 F 63 20 120/70 98
08/15/24 16:43 08/15/24 16:43 08/15/24 16:43 08/15/24 16:43 08/15/24 16:43
Physical Exam
General: Well Developed, Well Nourished and No Apparent Distress
HEENT: NormoCephalic, Moist mucous membranes and Atraumatic
Respiratory: Clear
Cardiac: S1/S2 and Regular Rhythm; No Murmur or Rub
GI: Soft, Non Tender, Non Distended and Normal Bowel Sounds; No Organomegaly
Rectal: Deferred by Provider
Musculoskeletal: No Clubbing, No Cyanosis and No Edema
Skin: No Rash
Neuro: AO x 3 and Nonfocal/grossly intact
Psych: Calm
Laboratory Results
-
08/15/24 16:45
Data Reviewed
-
Lab Data: Labs Reviewed by me
Impression/Plan
-
# Syncope likely from ventricular fibrillation
#h/o Coronary Artery Disease s/p LAD Stent in 2020
#Status post left heart catheterization showing patent LAD stents. EF 30%, identical to previous echocardiogram
-Head CT and cervical spine CT negative for acute findings.
-EKG with paced rhythm
-repeat CT in 6 hours
-chest x ray with no acute findings
-trend trop, continue to trend trop
--Device interrogation showed 13 seconds of ventricular fibrillation that responded to ATP paced
-As per cardiology, add IV amiodarone load,, beta-viktoriya
-Obtain echo
-Cardiology following the patient
#Ischemic Cardiomyopathy (EF 20-25%)
#Chronic systolic HF
-No signs of heart failure exacerbation on exam today
-Monitor Is&Os and Daily Weights
#Paroxysmal Atrial Fibrillation
-hold eliquis, until repeat CT head
-Continue amiodarone
#Essential Hypertension
-Continue lisinopril
#Hyperlipidemia
-Continue Lipitor
#Pre-Diabetes
-Hbga1c 5.2
#Hypothyroidism
-Continue levothyroxine
#DVT proph: scd
Code Status: Full Code
[2024-08-15 17:16] LABS: Troponin I 0.033 ng/ml
--- NOTE | 2024-08-15 17:46 | W.PN.UPDATE ---
Update Note
Progress Note Update
This is an addendum to the H&P written by Stephanie Dejesus on 08/15/2024. Patient seen and examined independently with GROUP TEACHER.
69-year-old male past medical history of paroxysmal atrial fibrillation on Eliquis, ventricular tachycardia with biventricular ICD, CAD with LAD stent, ischemic cardiomyopathy, chronic HFrEF, hypercholesterolemia, hypothyroidism, presenting with
syncopal episode while preparing turkey today. He hit his head on the door shortly prior to arrival.
Patient was admitted from 08/05 to 08/07 for chest pain. Patient had cardiac catheterization which showed clean coronaries. ICD interrogation was negative at that time. Patient was thought to have vasospastic angina versus small coronary clot
which self resolved. Patient was started on Toprol by cardiology however patient has not been taking.
EKG shows AV dual paced rhythm. Biventricular paced. Labs unremarkable. Chest x-ray unremarkable. CT head and CT cervical spine unremarkable.
Device interrogation showed 13 seconds of ventricular fibrillation that responded to ATP pacing. Patient denies any shocks. Amiodarone drip to be started. Patient to be started on Toprol which he was supposed to have been started on previously.
Recheck CT head in 6 hours to rule out intracranial bleeding. Hold Eliquis for now. Trend troponin.
[2024-08-15] MEDS: CORDARONE 103 MG IV (17:57)
[2024-08-15] MEDS: TYLENOL 650 MG PO (18:03)
[2024-08-15] MEDS: CORDARONE 518 MG IV (18:10)
[2024-08-15] MEDS: ADACEL 0.5 ML IM (19:00)
[2024-08-15] MEDS: TOPROL XL PO (21:23)
[2024-08-15] MEDS: LIPITOR 40 MG PO (21:23)
[2024-08-15] MEDS: ZESTRIL 1.25 MG PO (22:20)
[2024-08-16] VITALS (9 sets, daily range): BP systolic 95–126; BP diastolic 60–80; BMI 28.9
[2024-08-16 00:07] LABS: Troponin I 0.042 ng/ml
--- NOTE | 2024-08-16 00:57 | PTCARENOTE ---
Addendum entered by Hubert Dos Santos RN 08/16/24 01:02:
Pt stated PCP ordered him to half lisinopril (2.5mg to 1.25mg) due to dizzy spells at home. 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
Original Note:
Pt admit to IVU ~20:15. HR AV paced/V paced. Amio gtt infusing currently at 0.5mg/min per order. Pt states back of head where he received sutures is not causing any pain. Pt does c/o slight pain in shoulders from fall, is relieved positionally. Pt
transported to CT ~2310. Educated pt and on plan of care. Pt denies any CP, SOB, or lightheadedness/dizziness. Informed pt to notify RN for standby assist to bathroom.
[2024-08-16] MEDS: TYLENOL 650 MG PO ×2 (05:16→16:35)
[2024-08-16] MEDS: SYNTHROID 50 MCG PO (05:16)
[2024-08-16 06:16] LABS: HDL Cholesterol 56 mg/dl; LDL Cholesterol, Calculated 19 mg/dl; Total Cholesterol 83 mg/dl (50-199); Triglyceride 43 mg/dl (10-149); Very Low Density Lipoprotein 8 mg/dl (0-30)
[2024-08-16 06:26] LABS: Troponin I 0.033 ng/ml
--- NOTE | 2024-08-16 06:40 | W.PN.HOSP.TC ---
Today's Communication/Plan
-
Repeat CT head for 3rd time because 2nd CT head showed small scalp hematoma, if the hematoma stable then ok to resume Eliquis
- If amiodarone gtt continues, he will need pic line
- Not pre- diabetic
Assessment / Plan
Assessment / Plan
Physical Exam
General: Well Developed, Well Nourished and No Apparent Distress
HEENT: NormoCephalic, Moist mucous membranes and Atraumatic
Respiratory: Clear
Cardiac: S1/S2 and Regular Rhythm; No Murmur or Rub
GI: Soft, Non Tender, Non Distended and Normal Bowel Sounds; No Organomegaly
Rectal: Deferred by Provider
Musculoskeletal: No Clubbing, No Cyanosis and No Edema
Skin: No Rash
Neuro: AO x 3 and Nonfocal/grossly intact
Psych: Calm
# Syncope likely from ventricular fibrillation
#h/o Coronary Artery Disease s/p LAD Stent in 2020
- s/p ICD: Medtronic
-Device interrogation showed 13 seconds of ventricular fibrillation that responded to ATP paced
#Status post left heart catheterization showing patent LAD stents. EF 30%, identical to previous echocardiogram
-Head CT and cervical spine CT negative for acute findings.
-EKG with paced rhythm
-repeat CT in 6 hours showed small scalp hematoma.
-chest x ray with no acute findings
-trend trop, continue to trend trop
--Device interrogation showed 13 seconds of ventricular fibrillation that responded to ATP paced
-As per cardiology, add IV amiodarone load,, beta-viktoriya
-Obtain echo
-Cardiology following the patient
# Head injury
3 stitches applied, no bleeding
Repeat CT head small scalp hematoma.Pt denies headache, blurred vision.
# Mild troponin at 0.042, not significant
#Ischemic Cardiomyopathy (EF 20-25%)
#Chronic systolic HF
-No signs of heart failure exacerbation on exam
-Monitor Is&Os and Daily Weights
#Paroxysmal Atrial Fibrillation
-hold Eliquis,can resume Eliquis if repeat CT head ( 3rd time) showing no worsening hematoma.
-Continue amiodarone
#Essential Hypertension
-Continue lisinopril
#Hyperlipidemia
-Continue Lipitor
#Not pre- diabetic
-Hbga1c 5.2
#Hypothyroidism
-Continue levothyroxine
#DVT proph: scd
Code Status: Full Code
Total time spent to see the patient, examine the patient, review data and lab results, discuss treatment plan with the patient, nursing staff around 55 minutes
Anticipated Discharge: > 48 hours
Subjective/Interval History
-
Date of Service: August 16, 2024
No chest pain
No sob
No fevers
Objective Data
-
Vital Signs:
Vital Signs
Temp Pulse Resp BP Pulse Ox
97.9 F 75 18 126/80 95
08/16/24 03:00 08/16/24 03:00 08/16/24 03:00 08/16/24 03:00 08/16/24 03:00
I&O
08/14/24 08/15/24 08/16/24
06:59 06:59 06:59
Intake Total 480 / 480
Balance 480 / 480
--- NOTE | 2024-08-16 08:40 | CARDSERVLU ---
Echocardiogram with [facility] completed after protocol screening completed. Allergies verified.
Patent IV site: __L AC___
IV site flushed with 0.9% NaCl pre and post administration.
Diluted bolus method utilized to enhance visualization of ventricular leach.
Total volume given: __1.5__ mL
Patient tolerated all procedures well without complications.
[2024-08-16] MEDS: ASPIR LOW (ENTERIC COATED) 81 MG PO (09:17)
[2024-08-16] MEDS: TOPROL XL 12.5 MG PO ×2 (09:17→20:35)
[2024-08-16] MEDS: FARXIGA 10 MG PO (09:17)
--- NOTE | 2024-08-16 10:12 | W.PN.CD ---
Today's Communication / Plan
-
Complete IV amnio load.
Transition to 400 mg p.o. twice daily
Continue to monitor telemetry closely.
Echo today.
Impression / Plan
-
Syncope due to ventricular fibrillation
-Device interrogation showed 13 seconds of ventricular fibrillation that responded to ATP paced (report from the device company, full details still not available), suspect was actually VT in VF range
-We complete IV amiodarone load
-will continue beta-viktoriya--new this admission
-recommend EP c/s on discharger to evaluate role of repeat study and ablation for VT?
-Update echocardiogram today
head trauma:
He did hit his head on the fall, CT head negative x2 pending, care as per medicine
Ischemic cardiomyopathy (LVEF 25 to 30%)
-He does not appear to be in acute/decompensated heart failure
-He does not require standing diuretic to maintain euvolemia
-GDMT is limited by blood pressure
-BB: We will add metoprolol succinate 12.5 milligrams twice daily
-SYLVIA/ARB/ARNI/MRA: Lisinopril low dose (he did not tolerate Entresto)
-SGLT2: Jardiance 10 mg daily (resume on d/c)
-ICD: Medtronic
-Continue daily weight and low-sodium diet
-Upon discharge would recommend evaluation at advanced heart failure center
s/p [facility] last 08/06/24:
-Pk trop 3.3
-no culprit on cath, EF 30%
- meds have been limited by orthostatic dizziness complaint
-low dose Toprol XL added
Coronary artery disease
-STEMI 06/2021 with pLAD occlusion status post PCI, peak troponin >400
-[facility] 12/2023 showed patent LAD stent and mild luminal irregularities in RCA and left circumflex, medical management
-He is on apixaban/ASA and atorvastatin
Ventricular tachycardia, status post Medtronic BiV ICD, on amiodarone (started after ICD shock)
HLD, on atorvastatin: LDL is 22
Paroxysmal atrial fibrillation
Subjective:
depressed about all that has happened, but no further dizziness, chest pain or shortness of breath.
Data reviewed:
Cardiac catheterization 08/06/2024
Indication: Non-STEMI
�
HEMODYNAMIC DATA
AO: 108/59
LV: 108/21
�
LEFT VENTRICULOGRAPHY: Dilated left ventricle with severe anterolateral and anteroapical hypokinesis. The visually estimated EF is 30%
�
CORONARY ANGIOGRAPHY
Dominance: Right
Left Main: Normal
LAD: There is a widely patent stent with no restenosis extending from near the ostium of the LAD into the midportion (LIAM 2020). The remainder of the LAD system has mild luminal irregularities
Circumflex: Mild luminal irregularities
RCA: Mild luminal irregularities in the RCA proper. The RPDA has diffuse disease
�
Closure Device: 6 [place] Angio-Seal RFA. Of note the right radial artery pulse was absent and we performed the procedure from the RFA
�
Radiation (mGy): 346
DAP (cm2.Gy): 27.1
Fluoroscopy time: 1.7 minutes
�
CONCLUSIONS
1:�Dilated LV with severe anterolateral and anteroapical hypokinesis with EF 30%-this is similar to the prior study from December 2023 and may actually be slightly improved
2:�Stable CAD as described. There is no obvious culprit for his non-STEMI (peak Trop 3.4)-cannot exclude the mid RPDA as a culprit lesion sitel but clearly no appropriate interventional target in this small branch
TTE 01/18/24:
CONCLUSIONS
Severely reduced left ventricular systolic function.
Estimated left ventricular ejection fraction is 25-30%
Mild mitral regurgitation.
Compared to the previous echo 10/15/2021 there is no significant change.
�
Physical Exam
Vital Signs/Labs
Vital Signs
Temp Pulse Resp BP Pulse Ox
97.8 F 59 18 114/79 97
08/16/24 07:17 08/16/24 08:00 08/16/24 07:17 08/16/24 07:18 08/16/24 07:17
08/15/24 08/16/24 08/17/24
06:59 06:59 06:59
Actual Weight 107.5 kg
08/15/24 16:45
08/15/24 16:45
Magnesium 1.9 mg/dl (1.6-2.3) 08/15/24 16:45
Triglycerides 43 mg/dl (10-149) 08/16/24 05:40
LDL Cholesterol, Calc 19 mg/dl 08/16/24 05:40
VLDL Cholesterol, Calc 8 mg/dl (0-30) 08/16/24 05:40
HDL Cholesterol 56 mg/dl 08/16/24 05:40
LAB Results
08/15/24 08/15/24 08/16/24
16:48 23:31 05:40
Troponin I 0.033 0.042 H* D 0.033
Physical Exam
Constitutional: No acute distress
Cardiovascular: Rhythm & rate is regular, Pedal edema is absent, JVD pressure is normal, Systolic murmur absent, Diastolic murmur absent and Rhythm/rate is irregular
Respiratory: Respiratory effort normal, Lungs clear to auscul., Wheeze Absent, Crackles Absent and Rhonchi Absent
Neuro/Psych: AO x 3
Data Reviewed
-
Date of Service: August 16, 2024
Medical Decision Making: Review of Case with other Provider (Reviewed plan for completing IV amiodarone and resuming p.o. this evening with Dr. Finch and his nurse.)
EKG: Other (Telemetry AV paced)
[2024-08-16] MEDS: MIRALAX 17 GRAMS PO (12:47)
--- NOTE | 2024-08-16 13:59 | CM ---
CM following for DC planning needs.
Met w/ patient at bedside to complete initial assessment. Spouse also present.
Pt. resides w/ spouse in a private, 2 story home. Pt. is functionally indep. at baseline w/ ADLs, mobility without the use of any assisted device.
Pt. had recent hospitalization @ and was DC'ed to home without any needs.
I anticipate DC to home without needs.
Pt. did state that he needs new Rx for Eliquis as his mail order has not arrived. I alerted Cardiology RAILROAD WHEELS AND AXLES INSPECTOR, who will order to patient's pharmacy.
Will cont. to follow.
--- NOTE | 2024-08-16 17:15 | W.PN.UPDATE ---
Update Note
Progress Note Update
Per case management, patient will need Eliquis sent to his local pharmacy at d/c since he is out of it now at home. I was going to send it in, but I see that he is not back on it yet per internal medicine, so will hold off. When he is cleared to
resume should be sent in.
--- NOTE | 2024-08-16 19:14 | PTCARENOTE ---
Infiltration of amiodarone in right forearm IV, device removed and ice applied with resolution of swelling. New IV device placed by IV team. Amiodarone infusion completed, plan to start oral amiodarone tonight. Telemetry shows vent paced rhythm @
50's, aware of heart rate.
[2024-08-16] MEDS: PACERONE 400 MG PO (19:29)
[2024-08-16] MEDS: LIPITOR 40 MG PO (22:44)
[2024-08-16] MEDS: ZESTRIL PO (22:45)
--- NOTE | 2024-08-16 23:12 | PTCARENOTE ---
Pt received start of shift, HR AV paced. Pt in bed w/ at bedside. Amiodarone drip off. Reinforced education on amiodarone and toprol with pt and . Pt verbalizes understanding. Evening dose lisinopril held - not within admin parameters. Pt
expressed wish to leave tomorrow. Updated pt on plan of care. Pt denies any lightheadedness/dizziness, CP, or SOB.
[2024-08-17 03:02] VITALS: BP 110/74
[2024-08-17 03:21] LABS: Hematocrit 40.4 % (39.0-52.0); Hemoglobin 13.9 g/dL (13.0-18.0); Mean Corp Hgb Conc. 34.4 g/dL (33.0-37.0); Mean Corpuscular Hgb 32.6 pg (27.0-31.0); Mean Corpuscular Volume 94.8 fL (80.0-94.0); Mean Platelet Volume 11.2 fL (7.4-10.4); Platelet Count 145 10^3/uL (130-400); Red Blood Cell Count 4.26 10^6/uL (4.70-6.10); Red Cell Dist. Width 13.7 % (11.5-14.5); White Blood Cell Count 6.2 10^3/uL (4.8-10.8)
[2024-08-17 03:42] LABS: Blood Urea Nitrogen 19 mg/dl (9-20); Carbon Dioxide 27 mmol/L (22-30); Chloride 104 mmol/L (98-107); Estimated Creatinine Clearance 73 ml/min; Glucose 103 mg/dl (70-99); Potassium 4.3 mmol/L (3.5-5.1); Sodium 140 mmol/L (135-145); eGFR > 60.00
[2024-08-17 06:00] VITALS: BMI 28.3
[2024-08-17] MEDS: SYNTHROID 50 MCG PO (06:03)
[2024-08-17] MEDS: TYLENOL 650 MG PO (06:03)
--- NOTE | 2024-08-17 06:39 | W.PN.HOSP.TC ---
Today's Communication/Plan
-
dc planning
f/w cardiology recommendations
Assessment / Plan
Assessment / Plan
Physical Exam
General: Well Developed, Well Nourished and No Apparent Distress
HEENT: NormoCephalic, Moist mucous membranes and Atraumatic
Respiratory: Clear
Cardiac: S1/S2 and Regular Rhythm; No Murmur or Rub
GI: Soft, Non Tender, Non Distended and Normal Bowel Sounds; No Organomegaly
Rectal: Deferred by Provider
Musculoskeletal: No Clubbing, No Cyanosis and No Edema
Skin: No Rash
Neuro: AO x 3 and Nonfocal/grossly intact
Psych: Calm
# Syncope likely from ventricular fibrillation
#h/o Coronary Artery Disease s/p LAD Stent in 2020
- s/p ICD: Medtronic
-Device interrogation showed 13 seconds of ventricular fibrillation that responded to ATP paced
#Status post left heart catheterization showing patent LAD stents. EF 30%, identical to previous echocardiogram
-Head CT and cervical spine CT negative for acute findings.
-EKG with paced rhythm
-repeat CT in 6 hours showed small scalp hematoma.
-chest x ray with no acute findings
-As per cardiology, s/p IV amiodarone gtt load, then oral amiodarone 400 mg BID. c/w Beta-viktoriya
-Obtain echo
-Cardiology following the patient
# Head injury
3 stitches applied, no bleeding
Repeat CT head small scalp hematoma.Pt denies headache, blurred vision.
Repeat CT head ( 3rd time) showing Stable 4 mm left occipital scalp hematoma with adjacent subcutaneous gas. Stitches to be removed after 7 days total, he will go to his GP.
# Mild troponin at 0.042, not significant
#Ischemic Cardiomyopathy (EF 20-25%)
#Chronic systolic HF
-No signs of heart failure exacerbation on exam
- No cough, no sob
#Paroxysmal Atrial Fibrillation
-Held Eliquis, can resume Eliquis, repeat CT head ( 3rd time) showing Stable 4 mm left occipital scalp hematoma with adjacent subcutaneous gas. Stitches to be removed after 7 days total, he will go to his GP.
-Continue amiodarone
#Essential Hypertension
-Continue lisinopril
#Hyperlipidemia
-Continue Lipitor
#Not pre- diabetic
-Hbga1c 5.2
#Hypothyroidism
-Continue levothyroxine
#DVT proph: scd
Code Status: Full Code
Total discharge time spent to see the patient, examine the patient, review data and lab results, discuss discharge plan with the patient, nursing staff around 65 minutes
Anticipated Discharge: Today
Subjective/Interval History
-
Date of Service: August 17, 2024
He denies chest pain
No arrhythmias overnight
Objective Data
-
Labs:
Laboratory Results
08/17/24
03:09
WBC 6.2
Hgb 13.9
Hct 40.4
Plt Count 145
Sodium 140
Potassium 4.3
Chloride 104
Carbon Dioxide 27
BUN 19
Creatinine 1.2
Glucose 103 H
Calcium 9.0
Vital Signs:
Vital Signs
Temp Pulse Resp BP Pulse Ox
97.6 F 48 22 110/74 94
08/17/24 03:02 08/17/24 05:30 08/17/24 03:02 08/17/24 03:02 08/17/24 03:02
I&O
08/15/24 08/16/24 08/17/24
06:59 06:59 06:59
Intake Total 480 / 480 1000 / 1000
Balance 480 / 480 1000 / 1000
[2024-08-17 07:34] VITALS: BP 109/71; BP 95/60; BP 97/64; PULSE 53; PULSE 57; PULSE 74
[2024-08-17 07:35] VITALS: BP 97/64
[2024-08-17 07:36] VITALS: BP 95/60
[2024-08-17 07:37] VITALS: BP 109/71
[2024-08-17] MEDS: FARXIGA 10 MG PO (08:50)
[2024-08-17] MEDS: PACERONE 400 MG PO (08:51)
[2024-08-17] MEDS: TOPROL XL 12.5 MG PO (08:51)
[2024-08-17] MEDS: ASPIR LOW (ENTERIC COATED) 81 MG PO (08:51)
--- NOTE | 2024-08-17 09:10 | W.PN.CD ---
Addendum entered and electronically signed by Jonel Amos MD 08/17/24 09:25:
note patient has office visit scheduled at [facility] at 08/27/24 at 1:00PM
Original Note:
Today's Communication / Plan
-
continue amiodarone 400mg BID for 1 week and then retuirn to 200mg BID
continue metoprolol
follow with Dr Schwartz (EP)
Impression / Plan
-
Syncope due to ventricular fibrillation
-Device interrogation showed 13 seconds of ventricular fibrillation that responded to ATP paced (report from the device company, full details still not available), suspect was actually VT in VF range
-We complete IV amiodarone load
-will continue beta-viktoriya--new this admission
-recommend EP c/s on discharger to evaluate role of repeat study and ablation for VT?
echo 08/16/24 EF 25-30%
head trauma:
He did hit his head on the fall, CT head negative x2 pending, care as per medicine
Ischemic cardiomyopathy (LVEF 25 to 30%)
-He does not appear to be in acute/decompensated heart failure
-He does not require standing diuretic to maintain euvolemia
-GDMT is limited by blood pressure
-BB: We will add metoprolol succinate 12.5 milligrams twice daily
-SYLVIA/ARB/ARNI/MRA: Lisinopril low dose (he did not tolerate Entresto)
-SGLT2: Jardiance 10 mg daily (resume on d/c)
-ICD: Medtronic
-Continue daily weight and low-sodium diet
-Upon discharge would recommend evaluation at [facility] center
s/p MINOCA last 08/06/24:
-Pk trop 3.3
-no culprit on cath, EF 30%
- meds have been limited by orthostatic dizziness complaint
-low dose Toprol XL added
Coronary artery disease
-STEMI 06/2021 with pLAD occlusion status post PCI, peak troponin >400
-[facility] 12/2023 showed patent LAD stent and mild luminal irregularities in RCA and left circumflex, medical management
-He is on apixaban/ASA and atorvastatin
Ventricular tachycardia, status post Medtronic BiV ICD, on amiodarone (started after ICD shock)
HLD, on atorvastatin: LDL is 22
Paroxysmal atrial fibrillation
Subjective:
depressed about all that has happened, but no further dizziness, chest pain or shortness of breath.
Data reviewed:
Cardiac catheterization 08/06/2024
Indication: Non-STEMI
�
HEMODYNAMIC DATA
AO: 108/59
LV: 108/21
�
LEFT VENTRICULOGRAPHY: Dilated left ventricle with severe anterolateral and anteroapical hypokinesis. The visually estimated EF is 30%
�
CORONARY ANGIOGRAPHY
Dominance: Right
Left Main: Normal
LAD: There is a widely patent stent with no restenosis extending from near the ostium of the LAD into the midportion (LIAM 2020). The remainder of the LAD system has mild luminal irregularities
Circumflex: Mild luminal irregularities
RCA: Mild luminal irregularities in the RCA proper. The RPDA has diffuse disease
�
Closure Device: 6 Fijian Angio-Seal RFA. Of note the right radial artery pulse was absent and we performed the procedure from the RFA
�
Radiation (mGy): 346
DAP (cm2.Gy): 27.1
Fluoroscopy time: 1.7 minutes
�
CONCLUSIONS
1:�Dilated LV with severe anterolateral and anteroapical hypokinesis with EF 30%-this is similar to the prior study from December 2023 and may actually be slightly improved
2:�Stable CAD as described. There is no obvious culprit for his non-STEMI (peak Trop 3.4)-cannot exclude the mid RPDA as a culprit lesion sitel but clearly no appropriate interventional target in this small branch
TTE V5/11/11:
CONCLUSIONS
Severely reduced left ventricular systolic function.
Estimated left ventricular ejection fraction is 25-30%
Mild mitral regurgitation.
Compared to the previous echo 10/15/2021 there is no significant change.
�
Physical Exam
Vital Signs/Labs
Vital Signs
Temp Pulse Resp BP Pulse Ox
97.9 F 66 18 109/71 98
08/17/24 07:33 08/17/24 08:51 08/17/24 07:33 08/17/24 08:51 08/17/24 08:08
08/16/24 08/17/24 08/18/24
06:59 06:59 06:59
Actual Weight 107.5 kg 105.4 kg
08/17/24 03:09
08/17/24 03:09
Magnesium 1.9 mg/dl (1.6-2.3) 08/15/24 16:45
Triglycerides 43 mg/dl (10-149) 08/16/24 05:40
LDL Cholesterol, Calc 19 mg/dl 08/16/24 05:40
VLDL Cholesterol, Calc 8 mg/dl (0-30) 08/16/24 05:40
HDL Cholesterol 56 mg/dl 08/16/24 05:40
LAB Results
08/15/24 08/15/24 08/16/24
16:48 23:31 05:40
Troponin I 0.033 0.042 H* D 0.033
Physical Exam
Constitutional: No acute distress
Cardiovascular: Rhythm & rate is regular
Respiratory: Respiratory effort normal
GI: Soft
Neuro/Psych: Alert
Data Reviewed
-
Date of Service: August 17, 2024
Medical Decision Making: Reviewed Test Results
Medical Tests (PFT, Pathology etc): Report Reviewed by me
Labs: Labs Reviewed by me
[2024-08-17] MEDS: ELIQUIS 5 MG PO (09:31)
--- NOTE | 2024-08-17 11:43 | W.DCSUMMARY ---
Discharge Summary
Discharge Data
Date of Admission: 08/15/24
Date of Discharge: 08/17/24
-
Pending Results: No
Hospital Course
69 years old male presented for syncopal episode. He reported since discharged from on 08/07/24, he felt fatigued. He did not resume beta-viktoriya use. He was able to continue with all his usual activities but unable to do exercising. He was
carving the turkey, felt dizzy and went out. He did hit his head. He was taking Eliquis. HE denied chest pain or shortness of breath. Patient was diagnosed with syncopal episode secondary to ventricular fibrillation. Device interrogation showed
13 seconds of ventricular fibrillation that responded to ATP paced, suspect to be actually VT in VF range. Patient was started on intravenous amiodarone. Echocardiogram showed normal left ventricular size with LVEF 25 to 30%, mild global
hypokinesis with severe hypokinesis and akinesis seen in the LAD distribution with no significant valvular heart disease or changes from prior echocardiogram. He was started on higher dose of oral amiodarone 400 mg twice a day. He was maintained
on metoprolol. Amiodarone was weaned off. Patient did not have recurrent arrhythmia. He had serial scan of the head shows stability of scalp hematoma. Patient did not have headache, blurred vision or focal neurological symptoms. Eliquis was
resumed. Cardiology recommended outpatient follow-up with EP body art technician. Patient remained hemodynamically stable and was discharged home in a stable condition.
Discharge Plan
-
Patient Disposition: Home (Routine Discharge)
Discharge Diagnosis/Procedures: Syncope due to ventricular fibrillation, increased dose of amiodarone
s/p head trauma: , stiches to be removed after [address] head ( done 3 times) stable small scalp hematoma.
Ischemic cardiomyopathy (LVEF 25 to 30%)
Coronary artery disease.
Paroxysmal atrial fibrillation
Diet: Low Sodium
Referrals:
Vidhya Grant NP [Specified Professional Personl] - 08/28/24 3:20 pm
Lewcun,Vaughn G., DO [Family Provider] - in less than 1 week
Prescriptions:
New
Eliquis 5 mg Tablet
5 mg PO BID Qty: 60 0RF
amiodarone 200 mg Tablet
400 mg PO BID Qty: 60 0RF
metoprolol succinate 25 mg Tablet Extended Release 24 Hr
12.5 mg PO BID Qty: 60 0RF
Continued
aspirin 81 mg Tablet,Delayed Release (Dr/Ec)
81 mg PO DAILY
nitroglycerin [Nitrostat] 0.4 mg Tablet, Sublingual
0.4 mg SUBLINGUAL [id number] PRN (Reason: Chest Pain)
atorvastatin 40 MG tablet
40 mg PO HS
Centrum Silver Men [phone] mcg Tablet
1 tab PO DAILY
Jardiance 10 mg Tablet
10 mg PO DAILY
triamcinolone acetonide 0.1 % cream
1 applic TOPICAL BIDPRN PRN (Reason: rash areas on back, arms)
lisinopril 2.5 mg tablet
1.25 mg PO DAILY
levothyroxine [Synthroid] 50 mcg Tablet
50 mcg PO DAILY
Discontinued
Eliquis 5 mg Tablet
5 mg PO BID
amiodarone 200 mg Tablet
200 mg PO BID
Discharge Orders:
Discharge Patient (As Directed); Ordered 08/17/24
Ordered By: Luis Miguel Finch
Care Plan Goals
Care Plan Goals:
Problem: Readiness for enhanced knowledge related to diagnosis and treatment plan
Goal: Understand your diagnosis and treatment plan needs, including medications if applicable.
Instructions: Know your diagnosis, underlying causes and treatment plan options, including medications if applicable. Consult with your health care team to learn about your diagnosis and treatment plan, including medications if applicable.
Discharge Date and Time
Discharge Date/Time: 08/17/24 12:10
Print Language: DANISH
--- NOTE | 2024-08-17 12:16 | PTCARENOTE ---
Pt seen by Darian and Dandre. Telemetry and IV device removed. Discharge instructions reviewed with pt regarding CHF guidelines, medications and their possible side effects, pain management of left knee and head lac, reporting cares and concerns
and follow up appt's. Pt will see his PCP next week to remove sutures. Pt escorted out via wheelchair and discharged to home.
== END 2024-08-17 12:10 | disposition home or self-care (01) | DRG 309 ==
LOC: IVU 17:53
PROVIDERS: Registered Nurse; ADMITTING PHYSICIAN Hospitalist; ATTENDING PHYSICIAN Internal Medicine; CONSULT PHYSICIAN Internal Medicine Cardiovascular Disease; EMERGENCY PHYSICIAN Emergency Medicine; FAMILY PHYSICIAN Family Medicine
PROC: 3E0234Z Introduction of Serum, Toxoid and Vaccine into Muscle, Percutaneous Approach (ICD-10-PCS; 2024-08-15)
PROC: 0HQ0XZZ Repair Scalp Skin, External Approach (ICD-10-PCS; 2024-08-15)
PROC: 4B02XTZ Measurement of Cardiac Defibrillator, External Approach (ICD-10-PCS; 2024-08-15)
DX: I49.01 Ventricular fibrillation (principal); I50.22 Chronic systolic (congestive) heart failure; S00.03XA Contusion of scalp, initial encounter; W19.XXXA Unspecified fall, initial encounter; Y93.G3 Activity, cooking and baking; Y92.9 Unspecified place or not applicable; I25.5 Ischemic cardiomyopathy; I25.10 Atherosclerotic heart disease of native coronary artery without angina pectoris; I48.0 Paroxysmal atrial fibrillation; Z79.84 Long term (current) use of oral hypoglycemic drugs; Z79.890 Hormone replacement therapy; Z79.82 Long term (current) use of aspirin; Z79.899 Other long term (current) drug therapy; I47.20 Ventricular tachycardia, unspecified; E78.00 Pure hypercholesterolemia, unspecified; E03.9 Hypothyroidism, unspecified; E11.9 Type 2 diabetes mellitus without complications; I11.0 Hypertensive heart disease with heart failure; Z95.5 Presence of coronary angioplasty implant and graft; E66.9 Obesity, unspecified; Z68.28 Body mass index [BMI] 28.0-28.9, adult; N40.0 Benign prostatic hyperplasia without lower urinary tract symptoms; Z96.611 Presence of right artificial shoulder joint; Z96.643 Presence of artificial hip joint, bilateral; Z96.652 Presence of left artificial knee joint; Z90.49 Acquired absence of other specified parts of digestive tract; Z23 Encounter for immunization; I25.2 Old myocardial infarction
CPT/HCPCS: 12001; 70450; 71045; 72125; 80048; 80053; 80061; 83735; 84484; 85025; 85027; 90715; 93005; 93306; 99291; Q9950

== ENCOUNTER 2024-11-14 05:58 | Day surgery (SDC) | payer MEDICARE, SELFPAY ==
[2024-11-14] VITALS (14 sets, daily range): BP systolic 92–135; BP diastolic 58–84; BMI 30.2
[2024-11-14] MEDS: NSS 500 IV (06:44)
[2024-11-14 09:34] LABS: ACT-LR - POC 390 Seconds (116-155)
[2024-11-14 09:57] LABS: ACT-LR - POC > 397 Seconds (116-155)
[2024-11-14 09:57] LABS: ACT-LR - POC > 397 Seconds (116-155)
[2024-11-14 10:10] LABS: ACT-LR - POC 382 Seconds (116-155)
[2024-11-14 10:41] LABS: ACT-LR - POC 361 Seconds (116-155)
[2024-11-14 10:46] LABS: ACT-LR - POC > 397 Seconds (116-155)
[2024-11-14 11:27] LABS: ACT-LR - POC 368 Seconds (116-155)
[2024-11-14 11:35] LABS: ACT-LR - POC 190 Seconds (116-155)
[2024-11-14 12:05] LABS: ACT-LR - POC > 397 Seconds (116-155)
--- NOTE | 2024-11-14 12:52 | ITS.CL.ABL ---
Emergency Management Consultant - Ablation
Ablation
Procedure Report:
Procedure Report:
VT ablation:
Mr. Solomon is a 69 yo pleasant gentleman with PMH of ICM with anterior wall wall WI with LVEF 20% NYHA class III, due to STEMI 06/2021 with pLAD occlusion status post PCI, peak troponin >400 with recurrent VT and ICD therapies s/p cardiac cath
showing no new ischemic lesions with stable CAD, Ventricular tachycardia, status post Medtronic BiV ICD, on amiodarone (started after ICD shock) presented today to the EP lab for VT ablation
Date of the Procedure:
11/14/24
Indications:
Ischemic Ventricular Tachycardia
Pre-Operative Diagnosis:
Ischemic Ventricular Tachycardia
Post-Operative Diagnosis:
Ischemic Ventricular Tachycardia
Procedure Performed:
Ventricular tachycardia ablation with Substrate Modification
ICE
Performing Physician:
Carline Rosenthal MD
Assistants:
EP staff
Anesthesia:
See anesthesia records
Detailed Description of the Procedure:
Written informed consent was obtained from the patient after a full explanation of the risks and benefits of the procedure including the risks of sedation and anesthesia. The patient was brought to the electrophysiology laboratory in stable
condition in fasting state. Continuous electrocardiographic and hemodynamic monitoring was initiated.
The initial rhythm was BiV pacing.
Device Interrogation:
Patient has Medtronic BiV ICD in place. The device was interrogated at the start of the case. The device and the lead was working normally. The tachy-therapies monitoring and interventions were suspended before the start of the case. The recreation programmer
remained connected in the room throughout the procedure.
The LV lead was turned off and RV demand pacing continued.
At the end of the case the device was reprogrammed to normal functioning at the previous settings. All therapies are resumed and ICD was armed before patient left the procedure room.
The procedure site was meticulously prepared with surgical scrub and allowed to dry with no pooling. Sterile draping was applied to cover the procedure site. The image intensifier was draped with sterile bag and positioned over the patient. After
infusion of local anesthetic, vascular access was obtained under ultrasound guidance and sheaths were placed over guide wire as detailed below.
Sheath and Catheter Placement:
In the right femoral vein, an 8 Fr sheath was placed under ultrasound guidance for ablation. In the right femoral vein, another 9-American sheath was placed under ultrasound guidance for ICE. The left femoral artery was cannulated but no sheath was
placed.
The femoral sheath was upgraded as needed during the case. The following catheters / sheaths were placed
Sheaths:
��������������� 8Fr in right femoral vein �
��������������� 9Fr sheath in right femoral vein
��������������� 12.5 Fr VIZIGO Sheath in right femoral artery
���������������
Catheters:
��������������� [employer] Thermocool STSF bidirectional - at locations of Aorta and LV
��������������� Sound-Star ICE catheter
Anticoagulation:
An initial 7000 units of heparin was given after the IV access and heparin drip was started. The ACT was checked every 30 minutes to keep ACT above 350 throughout the case.
Intracardiac ECHO:
An 8-American SoundStar intracardiac ECHO (ICE) probe was advanced through the 9-American sheath in the femoral vein into the right atrium under fluoroscopic and ICE ultrasound image guidance and a baseline ECHO study was performed. The left atrial size
was dilated. There was moderate tricuspid regurgitation. The aortic valve was grossly normal. There was severely reduced left ventricular systolic function. There is trace pericardial effusion.
There was a large old hematama noted inside the pericardial space that has laminated.
The LV cavity was mapped and the contours were made using the ICE on 3D mapping. The Pap muscles were identified. The GLEN and mitral valve annulus were marked.
The atrial lead was imaged and the fibrin deposits noted at the start of the case and re-imaged at the end of the case with no change in the mass of these deposits. There was a substantial deposit noted on the ICD lead as well.
With the deposits noted on ICD leads, decision was made to avoid transseptal puncture and retrograde approach was deployed.
During the procedure, ICE was used for monitoring of complications, guidance of trans-septal puncture, monitor the catheter position and tracking ablation lesions. No change in the pericardial space noted throughout the procedure.
Using ultrasound, the femoral artery was cannulated and 5Fr was placed that was upgraded to Vizigo sheath. The ablator was curled in the aorta and crossed from the aortic valve into the LV cavity.
3D Electroanatomic Mapping:
Using the [employer] STSF catheter was advanced through VISIGO sheath. An electroanatomic map (EAM) of the cardiac chambers was created using [employer] Carto mapping system.
Patient had VT x 2 while mapping the LV cavity. The VT was hemodynamically unstable and could not be entrained or mapped and was cardioverted with 200 J shock.
First the LV cavity was mapped with the bipolar voltage maps created with [employer] 3 v7. The bipolar voltage mapping continued and the patient spontaneously went into VT again �VT was sustained and needed cardioversion.
Ablation:
Ventricular tachycardia ablation:
Using the isochronal late activation maps (ILAM) with Carto mapping, the slow conduction areas were identified.
The scar was noted on the anterior wall using bipolar voltage of border zone between 0.5 and 1.5 mV and scar <1.5 mV.
The ILAM areas were mapped in RV paced rhythm.
The scar pacing was able to capture LV cavity indicating conducting myofibrils that were responsible for other VTs. The whole of the critical isthmus was ablated from the apex to the mid basal area.
Then the scar and ILAM along with border zone and heterogeneous zones were identified that are responsible for slow conduction and propagate VT. These areas were ablated in series of lesions. The scars were identified and the critical areas were
ablated.
�
No VT was inducible at end of the study with aggressive pacing maneuvers.
Procedure End
ICE study was done again that showed no epicardial accumulation. No complications noted.
Following the completion of the EP study, catheters were removed. Protamine 50 mg was given at the end of the procedure and ACT was checked repeatedly. The sheaths were removed and hemostasis achieved with manual compression after acceptable ACT is
achieved.
Fluoro Time:
0 min - fluoroless
Estimated Blood loss:
<5 cc
Specimens Removed:
None.
Implants / Devices:
None
Urine output:
None
Packs / Drains/ Tubes:
None
Instrument / Sponge Count Correct:
Yes
Complications of the Procedure:
None
Condition of Patient at Time of Transfer:
Hemodynamically stable with no neurological or vascular compromise.
Summary:
VT ablation with substrate modification
Fibrin deposits noted on the BiV ICD leads.
--- NOTE | 2024-11-14 15:45 | PTCARENOTE ---
Pt arrived from laboratory apparatus glass blower with RN via stretcher & monitored with left radial arterial line transduced. @ handoff his right femoral dressing was CDI with palpable DP pulses bilaterally, good capillary refill. Pt stated he has mild sensation loss on
the bottom of his feet which is chronic for him. Left hand #22g protective catheter flushed and patent. Lungs CTA posteriorly. +BSx4. Morbidly obese. His was at the bedside and informed of the plan of care. She was provided brochure on
visiting hours and phone #. Pt was oriented to the ICU and the use of the call rodarte. Safe environment maintained.
--- NOTE | 2024-11-14 17:14 | CON.INTV ---
Consultation
Consultation Request
Date/Time Consultation Requested: 11/14/2024 - 164
Date/Time Consultation Performed: 11/14/2024 - 1704
Requesting Provider: Dr. Rosenthal
Performing Provider: Dr. Villalobos
Reason for Consultation: s/p VT ablation
Medical History
-
Chief Complaint: Elective VT ablation
History of Present Illness:
69-year-old male with a past medical history of anterior wall STEMI s/p PCI of proximal LAD with LIAM placed, chronic HFrEF/ICM s/p BiV ICD (implanted 10/2021), paroxysmal A-fib on Eliquis, recurrent syncopal episodes due to VT/VF and hypothyroidism
who presents with VT ablation. Patient known to electrophysiology with last visit on 10/25/[address] Rosenthal. Patient's GDMT therapy has been limited due to symptomatic hypotension with dizziness. He previously did not tolerate Entresto and his
lisinopril was previously stopped due to symptomatic hypotension. He has a history of VTE in December 2023 which degenerated into VF requiring ICD shock, and also syncopized on 2023 with device interrogation showing 13 seconds of VF that
respond to ATP, and during hospitalization he was started on IV amiodarone and then transition to PO amio. He is now here for a VT ablation that he underwent without incident and was transferred to the ICU postoperatively for further care.
[employer] services consulted for additional management/recommendations.
When I saw the patient he was resting in bed in no acute distress, saying that he feels well. Currently saturating 96% on room air, heart rate 57 and BP 127/59. Patient's , Pat, at bedside and all questions were answered. Patient denies chest
pain, SOB, BU[place], nausea, fevers or chills.
PMHx: ICM with history of anterior wall NE, chronic HFrEF secondary to STEMI in June 2021 with proximal LAD occlusion s/p PCI with recurrent VT s/p BiV-ICD, history of globus sensation, dysphagia, colon polyps, diverticulosis, history of COVID-19
(09/2021)
PSHx: Vasectomy, cholecystectomy, left THR, left TKR, right THR, shoulder repair, BiV ICD implantation (10/2021)
Past Medical History
Past Medical History: Other (Above as per HPI)
Past Surgical History: Other (Above as per HPI)
Social History
Tobacco: Non-smoker
Alcohol: None
Drug: None
Personal:
Living: With Family (=Pat)
Family History
Family History: CAD (Father) and Cancer (Paternal grandfather: Colon cancer)
Allergies / Home Medications
Allergies
Allergy/AdvReac Type Severity Reaction Status Date / Time
No Known Allergies Allergy Verified 11/14/24 06:49
Home Medications
�Medication �Instructions �Recorded �Confirmed �Last Taken �Type
aspirin 81 mg tablet,delayed 81 mg PO DAILY Blood Clot 11/14/22 11/14/24 11/11/24 22:00 History
release Prevention/Tx
atorvastatin 40 mg tablet 40 mg PO HS High Cholesterol 11/14/22 11/14/24 11/13/24 22:00 History
nitroglycerin 0.4 mg sublingual 0.4 mg sublingual [id number] PRN 11/14/22 11/14/24 08/15/24 History
tablet (Nitrostat) Chest Pain
empagliflozin 10 mg tablet 10 mg PO DAILY Heart 01/11/24 11/14/24 11/11/24 10:00 History
(Jardiance) Disease/Condition
kdldgugs-gy-rnhwm 300 mcg-K 60 1 tab PO DAILY Supplement 01/11/24 11/14/24 11/14/24 05:00 History
mcg-lycop 600 mcg-lutein 300 mcg
tablet (Centrum Silver Men)
triamcinolone acetonide 0.1 % 1 applic topical BIDPRN PRN rash 08/05/24 11/14/24 11/13/24 12:00 History
topical cream areas on back, arms
levothyroxine 50 mcg tablet 50 mcg PO DAILY Thyroid 08/15/24 11/14/24 11/14/24 05:00 History
(Synthroid)
apixaban 5 mg tablet (Eliquis) 5 mg PO BID #60 tabs 08/17/24 11/14/24 11/13/24 22:00 Rx
csedolyib-kvoda-fbje-water topical 1 applic topical TID left upper 11/14/24 11/14/24 11/14/24 05:00 History
gel arm scrape
amiodarone 200 mg tablet 200 mg PO BID 11/14/24 11/14/24 11/14/24 05:00 History
metoprolol succinate 25 mg 25 mg PO BID 11/14/24 11/14/24 11/13/24 22:00 History
tablet,extended release 24 hr
Review of Systems
-
History Source: Patient
All other systems: Negative unless noted
Vitals / Labs / Diagnostic Testing
Vital Signs
Temp Pulse Resp BP Pulse Ox
97.9 F 57 10 107/72 96
11/14/24 16:00 11/14/24 16:15 11/14/24 16:15 11/14/24 16:15 11/14/24 16:36
Diagnostic Testing:
Physical Exam
-
HEENT: Normocephalic and Anicteric
Cardiovascular: S1/S2 and Peripheral Edema (negative)
Respiratory: Wheeze (negative), Rales (negative), Rhonchi (negative) and Non-Labored Respirations
GI: Soft, Non Distended, Non Tender and Normal Bowel Sounds
Neurology: AO x 3 and Tremors (negative)
Skin: Warm and Dry
General: Respiratory Distress (negative), Comfortable, Fever (negative) and Chills (negative)
Assessment
-
Assessment: 69-year-old male with a past medical history of anterior wall STEMI s/p PCI of proximal LAD with LIAM placed, chronic HFrEF/ICM s/p BiV ICD (implanted 10/2021), paroxysmal A-fib on Eliquis, recurrent syncopal episodes due to VT/VF and
hypothyroidism who presents with VT ablation. Patient known to electrophysiology with last visit on 10/25/[address] Rosenthal. Patient's GDMT therapy has been limited due to symptomatic hypotension with dizziness. He previously did not tolerate
Entresto and his lisinopril was previously stopped due to symptomatic hypotension. He has a history of VTE in December 2023 which degenerated into VF requiring ICD shock, and also syncopized on 2023 with device interrogation showing 13
seconds of VF that respond to ATP, and during hospitalization he was started on IV amiodarone and then transition to PO amio. He is now here for a VT ablation that he underwent without incident and was transferred to the ICU postoperatively for
further care. [employer] services consulted for additional management/recommendations.
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
sensation, dysphagia, colon polyps, diverticulosis, history of COVID-19 (09/2021)
Impression:
#History of recurrent VTE s/p BiV ICD on chronic amiodarone s/p VT ablation (procedure date: 11/14/2024)
#Paroxysmal A-fib on Eliquis
#History of syncope and collapse
#ICM with chronic HFrEF (TTE from 08/16/2024 showed LVEF 25-30% with mild global hypokinesis with severe hypokinesis and akinesis in the LAD distribution)
#History of colon polyps
#History of COVID-19 (10/09)
#Hyperlipidemia
#Hypothyroidism
Plan:
- Patient suffered a STEMI in June 2021 with a proximal LAD occlusion s/p PCI and has ischemic cardiomyopathy with recurrent VT on chronic amiodarone. He has syncopized multiple times, first in December 2023 with sustained VT requiring ICD shock
while on exercise treadmill (widely patent LAD stent on [facility]), and again on 2023 while he was cutting the turkey. During his readmission (admitted 08/15/2024) for syncope, his device interrogation showed 13 seconds of VF
that responded to ATP and was suspected to be VT in VF range therefore started on IV amiodarone and switch to oral amio for 100 mg twice a day. Patient discussed VT ablation at his last EP outpatient office visit on 10/25/2024 and underwent this
today (11/14/2024) with substrate modification
- There were no complications during the procedure today with EBL <5 cc. Post-operatively he was transferred to the ICU for close monitoring with an A-line
- Continuous telemetry
- Continue with PO amiodarone 200 mg BID
- Continue with Eliquis 5 mg PO BID
- Continue ASA, farxiga, lipitor and toprol-XL
- Replete electrolytes with K>4, Mg>2
- Maintain SpO2 >90-94% using supplemental oxygen as needed
- Aspiration precautions
- There has been no blood work done yet since his VT ablation --> obtain CBC, chemistry, magnesium, phosphate and coags
- Maintain MAP>65
- Maintain euglycemia with goal BG 140-180
- Trend H/H and transfuse if needed to keep Hb>7g/dL; keep plt>20k, unless there is concern for bleeding then keep plt>50k
- prn nebulized bronchodilators - not currently bronchospastic
- Incentive spirometer encouraged 10x per hour for at least 4 hrs a day
- DVT ppx: Eliquis
Continue ICU level care until deemed stable for downgrade versus discharge per cardiology/EP.
Total time spent today was 76 minutes for this encounter. Time includes reviewing laboratory test/imaging results, reviewing pertinent medical records, obtaining and reviewing medical history, performing an appropriate exam, ordering medications,
tests and procedures. Time also includes documentation of this encounter, coordinating patient care and communicating with other healthcare professionals. Total time does not include separately billed tests performed on this date of service.
[2024-11-14] MEDS: ANESTHETIC LOZENGE 1 LOZENGE PO (18:18)
[2024-11-14 18:31] LABS: ALT (SGPT) 68 U/L (0-50); AST (SGOT) 91 U/L (17-59); Albumin 3.9 g/dl (3.5-5.0); Alkaline Phosphatase 58 U/L (38-126); Blood Urea Nitrogen 15 mg/dl (9-20); Carbon Dioxide 24 mmol/L (22-30); Chloride 107 mmol/L (98-107); Estimated Creatinine Clearance 110 ml/min; Glucose 162 mg/dl (70-99); Magnesium 1.8 mg/dl (1.6-2.3); Phosphorus 2.9 mg/dl (2.5-4.5); Potassium 4.2 mmol/L (3.5-5.1); Sodium 138 mmol/L (135-145); Total Bilirubin 1.8 mg/dl (0.2-1.3); Total Protein 6.3 g/dl (6.3-8.2); eGFR > 60.00
[2024-11-14 18:43] LABS: INR 1.23; PT 16.1 Sec (11.4-14.6)
[2024-11-14 18:44] LABS: APTT 32.6 Sec (23.4-35.0)
[2024-11-14 18:48] LABS: Hematocrit 44.7 % (39.0-52.0); Hemoglobin 15.3 g/dL (13.0-18.0); Mean Corp Hgb Conc. 34.2 g/dL (33.0-37.0); Mean Corpuscular Hgb 31.2 pg (27.0-31.0); Mean Corpuscular Volume 91.2 fL (80.0-94.0); Mean Platelet Volume 11.2 fL (7.4-10.4); Platelet Count 132 10^3/uL (130-400); Red Cell Dist. Width 13.6 % (11.5-14.5); White Blood Cell Count 7.9 10^3/uL (4.8-10.8)
[2024-11-14] MEDS: ELIQUIS 5 MG PO (19:51)
[2024-11-14] MEDS: TOPROL XL 25 MG PO (19:51)
[2024-11-14] MEDS: PACERONE 200 MG PO (19:51)
[2024-11-14] MEDS: LIPITOR 40 MG PO (21:31)
[2024-11-15] VITALS: BP 127/91
[2024-11-15 00:01] VITALS: BP 104/57
--- NOTE | 2024-11-15 01:29 | PTCARENOTE ---
Received patient at change of shift. Patient AAO x3, 100% V-paced, b/l radial and pedal pulses positive. [place] intact and aligning with cuff bp. Lungs CTA throughout, pox 98% on ra. BS active x4, continent of urine and using urinal as needed. Right
groin dressing intact throughout shift thus far. Left hand 22g remains patent. Patient resting in bed, call rodarte within reach. Will continue to monitor.
[2024-11-15 02:00] VITALS: BP 95/56
[2024-11-15 04:00] VITALS: BP 99/61
[2024-11-15 04:24] LABS: Hematocrit 41.4 % (39.0-52.0); Hemoglobin 14.3 g/dL (13.0-18.0); Mean Corp Hgb Conc. 34.5 g/dL (33.0-37.0); Mean Corpuscular Hgb 31.4 pg (27.0-31.0); Mean Corpuscular Volume 90.8 fL (80.0-94.0); Platelet Count 132 10^3/uL (130-400); Red Blood Cell Count 4.56 10^6/uL (4.70-6.10); Red Cell Dist. Width 13.4 % (11.5-14.5); White Blood Cell Count 11.2 10^3/uL (4.8-10.8)
[2024-11-15 04:45] LABS: Blood Urea Nitrogen 15 mg/dl (9-20); Calcium 9.1 mg/dl (8.4-10.2); Carbon Dioxide 22 mmol/L (22-30); Chloride 106 mmol/L (98-107); Estimated Creatinine Clearance 98 ml/min; Glucose 122 mg/dl (70-99); Magnesium 1.8 mg/dl (1.6-2.3); Potassium 4.1 mmol/L (3.5-5.1); Sodium 137 mmol/L (135-145); eGFR > 60.00
[2024-11-15] MEDS: SYNTHROID 50 MCG PO (05:51)
[2024-11-15 06:00] VITALS: BP 103/66; BMI 29.5
[2024-11-15] MEDS: NSS IV ×2 (07:14→07:20)
--- NOTE | 2024-11-15 07:15 | PTCARENOTE ---
Received patient from hourly shift manager. patient is AAOx4, is vpaced in 50s. left radial radha pressure is slighly higher than manual cuff pressure. Patient is on 2L, 99%. lungs clear to auscultation. Patient has cholesterol lowering diet ordered,
has urinal at bedside. will review orders no episodes of VT last night. call rodarte within reach and able to make needs known.
[2024-11-15] MEDS: PACERONE 200 MG PO (07:18)
[2024-11-15] MEDS: ELIQUIS 5 MG PO (07:18)
[2024-11-15] MEDS: FARXIGA 10 MG PO (07:18)
[2024-11-15] MEDS: ASPIR LOW (ENTERIC COATED) 81 MG PO (07:18)
[2024-11-15 07:21] VITALS: BP 111/67
--- NOTE | 2024-11-15 07:31 | W.PN.INTV ---
Today's Communication / Plan
Recommendations
Up OOB as tolerated
Continue amiodarone + Eliquis as per cardiology
Outpatient follow-up with cardiology
Patient is being prepared for discharge home. Continue to follow-up as an outpatient with cardiology. No additional recommendations at this time. Stained Glass Installer/Pulmonary service will now sign off. Please reconsult if there are any additional
questions/concerns, or if patient's respiratory status deteriorates.
Assessment
-
Assessment: 69-year-old male with a past medical history of anterior wall STEMI s/p PCI of proximal LAD with LIAM placed, chronic HFrEF/ICM s/p BiV ICD (implanted 10/2021), paroxysmal A-fib on Eliquis, recurrent syncopal episodes due to VT/VF and
hypothyroidism who presents with VT ablation. Patient known to electrophysiology with last visit on 10/25/[address] Rosenthal. Patient's GDMT therapy has been limited due to symptomatic hypotension with dizziness. He previously did not tolerate
Entresto and his lisinopril was previously stopped due to symptomatic hypotension. He has a history of VTE in December 2023 which degenerated into VF requiring ICD shock, and also syncopized on 2023 with device interrogation showing 13
seconds of VF that respond to ATP, and during hospitalization he was started on IV amiodarone and then transition to PO amio. He is now here for a VT ablation that he underwent without incident and was transferred to the ICU postoperatively for
further care. Stained Glass Installer services consulted for additional management/recommendations.
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
sensation, dysphagia, colon polyps, diverticulosis, history of COVID-19 (09/2021)
Impression:
#History of recurrent VTE s/p BiV ICD on chronic amiodarone s/p VT ablation (procedure date: 11/14/2024)
#Paroxysmal A-fib on Eliquis
#History of syncope and collapse
#ICM with chronic HFrEF (TTE from 08/16/2024 showed LVEF 25-30% with mild global hypokinesis with severe hypokinesis and akinesis in the LAD distribution)
#History of colon polyps
#History of COVID-19 (10/09)
#Hyperlipidemia
#Hypothyroidism
Plan:
- Patient suffered a STEMI in June 2021 with a proximal LAD occlusion s/p PCI and has ischemic cardiomyopathy with recurrent VT on chronic amiodarone. He has syncopized multiple times, first in December 2023 with sustained VT requiring ICD shock
while on exercise treadmill (widely patent LAD stent on [facility]), and again on 2023 while he was cutting the turkey. During his readmission (admitted 08/15/2024) for syncope, his device interrogation showed 13 seconds of VF
that responded to ATP and was suspected to be VT in VF range therefore started on IV amiodarone and switch to oral amio for 100 mg twice a day. Patient discussed VT ablation at his last EP outpatient office visit on 10/25/2024 and underwent this
today (11/14/2024) with substrate modification
- There were no complications during the procedure from 11/14/2024 with EBL <5 cc. Post-operatively he was transferred to the ICU for close monitoring with an A-line
- Continuous telemetry
- Continue with PO amiodarone 200 mg BID
- Continue with Eliquis 5 mg PO BID
- Continue ASA, farxiga, lipitor and toprol-XL
- Replete electrolytes with K>4, Mg>2
- Maintain SpO2 >90-94% using supplemental oxygen as needed
- Aspiration precautions
- Maintain MAP>65
- Maintain euglycemia with goal BG 140-180
- Trend H/H and transfuse if needed to keep Hb>7g/dL; keep plt>20k, unless there is concern for bleeding then keep plt>50k
- prn nebulized bronchodilators - not currently bronchospastic
- Incentive spirometer encouraged 10x per hour for at least 4 hrs a day
- DVT ppx: Eliquis
Patient is being prepared for discharge home. Continue to follow-up as an outpatient with cardiology. No additional recommendations at this time. Stained Glass Installer/Pulmonary service will now sign off. Thank you for allowing us to be involved in the
care of this patient. Please reconsult if there are any additional questions/concerns, or if patient's respiratory status deteriorates.
Total time spent today was 27 minutes for this encounter. Time includes reviewing laboratory test/imaging results, reviewing pertinent medical records, obtaining and reviewing medical history, performing an appropriate exam, ordering medications,
tests and procedures. Time also includes documentation of this encounter, coordinating patient care and communicating with other healthcare professionals. Total time does not include separately billed tests performed on this date of service.
Subjective Dataa
Subjective Data
Date of Service:
Date of Service: November 15, 2024
Chief Complaint: Stained Glass Installer Follow Up
Subjective:
Patient seen and evaluated today at bedside. No acute events reported from overnight. Being prepared for discharge home. He denies chest pain, SOB, nausea, fevers or chills.
Review of Systems
General: Other (Negative unless mentioned above)
Objective Data
Data Reviewed
Vital Signs / I&O / Oxygen:
Vital Signs
Temp Pulse Resp BP Pulse Ox
97.9 F 54 14 111/67 96
11/15/24 07:09 11/15/24 07:18 11/15/24 05:15 11/15/24 07:18 11/15/24 05:15
Intake and Output
11/14/24 11/15/24 11/16/24
06:59 06:59 06:59
Intake Total 960 / 960
Output Total 1150 / 1150
Balance -190 / -190
SaO2 96
Nasal Cannula flow liters per 1
minute
Physical Exam
General: Respiratory Distress (negative), Comfortable, Chills (negative) and Sweats (negative)
HEENT: Normocephalic and Anicteric
Cardiovascular: S1-S2 and Peripheral Edema (negative)
Respiratory: Clear, Wheeze (negative), Crackles (negative) and Rhonchi (negative)
GI: Soft, Non Distended, Non Tender and Normal Bowel Sounds
Neurology: AO x 3 and Tremors (negative)
Skin: Warm, Dry, Cyanosis (negative) and Jaundice (negative)
Labs/Micro/Reports
Lab Data
11/15/24 03:48
11/15/24 03:48
Laboratory Results
11/14/24
18:10
PT 16.1 H
INR 1.23
APTT 32.6
--- NOTE | 2024-11-15 08:43 | PTCARENOTE ---
Spoke with Dr. Rosenthal, may discontinue Lillian and get patient OOB.
--- NOTE | 2024-11-15 09:19 | W.PN.CARDCBS ---
Addendum entered and electronically signed by Daniel Gao MD 11/15/24 10:21:
I saw and examined the patient.
The [employer] REPRESENTATIVE's note was reviewed and I agree with the note.
Comment:
69 y/o, sig PMH CAD/STEMI w/stenting, ICM, HFrEF 25-30%, Bi-V ICD with known VT/VF, PAF on eliquis. Pt had VT in 07/2024 with resultant syncope with head trauma (CT head negative). VT is symptomatic and recurrent with ICD shocks. He was started on
amiodarone and is status post VT ablation on 11/14/2024. He has no complaints today. On exam he is well-appearing, groin site looks good, cardiovascular exam with regular rate and rhythm and no murmurs, lungs are clear, no lower extremity edema.
Telemetry reveals pacing with no recurrent ventricular tachycardia. He is safe for discharge today from a cardiovascular standpoint. Discharge medications include amiodarone 200 mg twice daily, metoprolol 25 mg daily, Eliquis 5 mg twice daily ASA,
statin, and Jardiance 10 mg daily. He has follow-up scheduled with our office.
Original Note:
Today's Communication / Plan
-
Continue amio 200 BID, metoprolol 25 hs
resume eliquis
followup at [facility]
home today
Impression / Plan
-
PCP: Vaughn Chiang DO
CDY: Carline Rosenthal MD
69 y/o, sig PMH CAD/STEMI w/stenting, ICM, HFrEF 25-30%, Bi-V ICD with known VT/VF, PAF on eliquis. Pt had VT in 07/2024 with resultant syncope with head trauma (CT head negative). VT is symptomatic and recurrent with ICD shocks. He was started on
amiodarone and presents now for VT ablation.
IMPRESSION/PLAN:
VT/Bi-V ICD w/shocks/syncope (07/2024)
s/p VT ablation, 11/14/24
right groin site stable
tele- V/AVpaced 50-60s, no VT/arrhythmia
Continue amiodarone 200mg BID
bradycardia with pacing- metoprolol is 25mg HS only
followup at [facility]
no driving until cleared by cardiology
home today
CAD/Anterior STEMI s/p LAD PCI (06/2021)
stable, continue aspirin, metoprolol, atorvastatin
ICM/Chronic systolic HFrEF 25-30%
Bi-V ICD implant (10/2021)
continue HF regimen with metoprolol, jardiance
intolerant of lowest dose damien/arb, entresto with hypotension
daily weight, low sodium diet
PAF- [id number]
maintained on eliquis, restarted last evening
Progress Note - Grants Specialist
Subjective
Date of Service: November 15, 2024
Denies cp/palps/dyspnea
oob ambulating
groin site without pain
tired from little sleep d/t noises in room/urias
Objective
Labs:
11/15/24 03:48
11/15/24 03:48
Labs
Hgb 14.3 g/dL (13.0-18.0) 11/15/24 03:48
Hct 41.4 % (39.0-52.0) 11/15/24 03:48
Plt Count 132 10^3/uL (130-400) 11/15/24 03:48
PT 16.1 Sec (11.4-14.6) H 11/14/24 18:10
INR 1.23 11/14/24 18:10
APTT 32.6 Sec (23.4-35.0) 11/14/24 18:10
Sodium 137 mmol/L (135-145) 11/15/24 03:48
Potassium 4.1 mmol/L (3.5-5.1) 11/15/24 03:48
BUN 15 mg/dl (9-20) 11/15/24 03:48
Creatinine 0.9 mg/dL (0.7-1.3) 11/15/24 03:48
Glucose 122 mg/dl (70-99) H 11/15/24 03:48
Vital Signs and I&O:
Vital Signs
Temp Pulse Resp BP Pulse Ox
97.9 F 52 10 111/67 99
11/15/24 07:09 11/15/24 07:30 11/15/24 07:30 11/15/24 07:21 11/15/24 07:52
Vital Signs
Temp Pulse Resp BP Pulse Ox
97.9 F 52 10 111/67 99
11/15/24 07:09 11/15/24 07:30 11/15/24 07:30 11/15/24 07:21 11/15/24 07:52
Intake & Output
11/13/24 11/14/24 11/15/24 11/16/24
06:59 06:59 06:59 06:59
Intake Total 960 / 960
Output Total 1150 / 1150
Balance -190 / -190
Physical Exam
Physical Exam
AAOx3, MAEE 5/5
RRR S1 S2 no murmurs
CTA bilat, non labored
soft abd, +bs
right groin site KAITLYN, no ht/bleeding, mild ecchymosis laterally and medially to stick site, non tender
bilat extremities w/palpable distal pulses, no edema
[2024-11-15] MEDS: TOPROL XL PO (09:47)
--- NOTE | 2024-11-15 09:59 | W.DS.TRANS ---
DC Summary - Flat Surfacer
-
Discharge Instructions:
Sleep Apnea Risk Intermediate
Discharge Diagnosis/Procedures Ventricular tachycardia, post ablation
Diet Low Cholesterol,2 Gram Sodium
Driving Restrictions must be cleared by cardiology before driving
Instructions:
Stand-Alone Forms: DC Instructions- Cath/EP Lab
Changes to Home Medications: No
Discharge Medications:
DC Medications w/original date entered in [facility]
aspirin 81 mg tablet,delayed release 81 mg PO HS Blood Clot Prevention/Tx 11/14/22
atorvastatin 40 mg tablet 40 mg PO HS High Cholesterol 11/14/22
nitroglycerin 0.4 mg sublingual tablet (Nitrostat) 0.4 mg sublingual [id number] PRN Chest Pain 11/14/22
empagliflozin 10 mg tablet (Jardiance) 10 mg PO DAILY Heart Disease/Condition 01/11/24
tmjtnobg-gm-eaulc 300 mcg-K 60 mcg-lycop 600 mcg-lutein 300 mcg tablet (Centrum Silver Men) 1 tab PO DAILY Supplement 01/11/24
triamcinolone acetonide 0.1 % topical cream 1 applic topical BIDPRN PRN rash areas on back, arms 08/05/24
levothyroxine 50 mcg tablet (Synthroid) 50 mcg PO DAILY Thyroid 08/15/24
apixaban 5 mg tablet (Eliquis) 5 mg PO BID #60 tabs 08/17/24
xnqgughhn-amufh-ruwo-water topical gel 1 applic topical TID left upper arm scrape 11/14/24
amiodarone 200 mg tablet 200 mg PO BID 11/14/24
metoprolol succinate 25 mg tablet,extended release 24 hr 25 mg PO HS 11/14/24
Home Medication Changes
Pending Results: No
--- NOTE | 2024-11-15 11:40 | CM ---
CM following re: discharge planning.
Reviewed pt's chart, met with p[t.
Pt is a 69 year old male, admitted with [facility] status primary dx of Ventricular tachycardia, post ablation.
Pt lives with spouse 2SH, no steps to enter and pt is independent in all areas [employer].
Discharge order noted. Pt is aware and he stated his spouse will transport home.
D/C plan: home no needs.Spouse to transport
== END 2024-11-15 10:58 | disposition home or self-care (01) ==
LOC: CATH 05:58
PROVIDERS: Nurse Practitioner Adult Health; ATTENDING PHYSICIAN Internal Medicine Cardiovascular Disease; CONSULT PHYSICIAN Internal Medicine Critical Care Medicine; FAMILY PHYSICIAN Family Medicine; OTHER PHYSICIAN Student in an Organized Health Care Education/Training Program
DX: I47.20 Ventricular tachycardia, unspecified (principal); R55 Syncope and collapse; I49.01 Ventricular fibrillation; I25.10 Atherosclerotic heart disease of native coronary artery without angina pectoris; E03.9 Hypothyroidism, unspecified; E11.9 Type 2 diabetes mellitus without complications; E78.5 Hyperlipidemia, unspecified; I11.0 Hypertensive heart disease with heart failure; I25.2 Old myocardial infarction; I48.0 Paroxysmal atrial fibrillation; I25.5 Ischemic cardiomyopathy; Z79.01 Long term (current) use of anticoagulants; Z86.16 Personal history of COVID-19; I50.22 Chronic systolic (congestive) heart failure; Z86.0100 Personal history of colon polyps, unspecified; Z90.49 Acquired absence of other specified parts of digestive tract; Z80.0 Family history of malignant neoplasm of digestive organs; Z82.49 Family history of ischemic heart disease and other diseases of the circulatory system; Z79.890 Hormone replacement therapy; Z79.899 Other long term (current) drug therapy
CPT/HCPCS: 93662; C1769; C1732; C1759; C1894; C1892; 80048; 80053; 83735; 84100; 85027; 85347; 85610; 85730; 86850; 86900; 86901; 93005; 93654

== ENCOUNTER → 2025-04-03 09:55 | Outpatient (REF) | payer MEDICARE, SELFPAY | LOC: HWRAD 09:55 | PROVIDERS: ATTENDING PHYSICIAN Family Medicine | DX: R74.8 Abnormal levels of other serum enzymes (principal) | CPT/HCPCS: 76700 ==

== ENCOUNTER 2025-04-08 10:40 | Emergency (ER) | payer MEDICARE, SELFPAY ==
[2025-04-08 10:43] VITALS: BP 127/76
--- NOTE | 2025-04-08 11:16 | ED.GENMED ---
History of Present Illness
General
Chief Complaint: Back Pain
Source: patient and spouse
Time Seen by Provider: 04/08/25 11:00
History of Present Illness
History of Present Illness:
This patient is a 69-year-old male presents emergency department complaints of right-sided back pain that started Monday morning and continues. He says it feels like a 'muscle pull'. The pain is persistent, but worse with certain positions or
activity such as standing up. He did take a walk for about 30 minutes yesterday without difficulty. He does scribes the pain just to the right of his spine and his lower back and sometimes will radiate a little bit to the hip area. He denies
associated buttock or leg pain, abdominal pain, chest pain, dyspnea, nausea, vomit, fever, chills. He denies urinary symptoms such as dysuria or hematuria. He denies bowel or bladder incontinence. He denies perianal anesthesia or any new numbness
or tingling. Patient denies specific trauma but did state that when he was walking on Monday he 'turned my ankle', and wonders if he pulled a muscle in then. He also noted on Monday he stumbled over a chair that was on the ground and while he
did not fall or hit his head he also wonders whether or not this precipitated the pain.
Past History
Past History
ED Past Medical History: Arrthythmia (Paroxysmal atrial fibrillation), CHF (Ischemic cardiomyopathy, EF of 20 to 25% July 2021), HTN, Hypercholesterolemia, NIDDM, NH (Large anterior wall STEMI July 18, 2021), Hypothyroidism, Other (Obesity,
chronic orthopedic pain maintained on medical marijuana, gastritis) and Other (History of arthritis)
ED Past Surgical History: Cardiac (PTCA with stent to the LAD July 18, 2021; A. fib cardioversion July 22, 2021), Cholecystectomy, Orthopedic (bilateral hip replacement, left knee replacement, right shoulder replacement) and Urological
(Vasectomy)
Social History
Tobacco: Non-smoker
Alcohol: Occasional
Drug: Marijuana (Medical marijuana)
Personal:
Living: with family
Employment: Retired
Family History
Family History: CAD
Phy Exam
Physical Exam
Physical Exam:
GENERAL: Alert , in no apparent distress
EYE: pupils equal and reactive
NECK: Supple, no significant adenopathy.
ENT: o/p clr, mmm.
CARDIAC: Regular rate and rhythm .
LUNGS: Clear breath sounds bilaterally, no acute respiratory distress, no wheezes/rales/rhonchi
ABDOMEN: Soft, without focal tenderness, no r/g, no cvat, no palpable abdominal mass
NEUROLOGICAL: Alert and oriented, no focal neuro deficits, 2+ patellar reflexes, neg slr, motor 5/5, sens itnact
SKIN: Warm and dry, skin intact.
MUSCULOSKELETAL: No edema, well perfused. Normal pulses noted
PSYCH: Normal and appropriate interaction.
back: nontnder to palpation spine, no skin changes, sits up easily.
Course
Orders/Labs/Results
Orders:
Orders
04/08/25 11:16
Cyclobenzaprine HCl [Flexeril] 10 mg PO NOW STA
LS Spine Complete, 4 View [CR Lumbar Spine Comp Min 4 Vw*] Urgent
Comment:
Reason For Exam: R sided pain
Vital Signs
Initial and Last Documented VS:
Initial Vital Signs
Temp Pulse Resp BP Pulse Ox
97.7 F 70 18 127/76 97
04/08/25 10:43 04/08/25 10:43 04/08/25 10:43 04/08/25 10:43 04/08/25 10:43
Last Documented Vital Signs
Temp Pulse Resp BP Pulse Ox
97.7 F 70 18 127/76 97
04/08/25 10:43 04/08/25 10:43 04/08/25 10:43 04/08/25 10:43 04/08/25 11:21
*Pulse Oximetry
SaO2: 97
Oxygen Mode of Delivery: Room air
Patient hypoxic: no
*Critical Care Note
Total Time (30-74mins, 75-104mins- exclusive of procedures): Not Applicable
Update Note
Update Note:
Patient presents to the Emergency Department with __right-sided back pain
Number and Complexity of Problems Addressed at the Encounter
� Chronic conditions affecting care:
� Acute Exacerbation and/or Progression of Chronic Illness:
� Differential Diagnosis includes: But not limited to sciatica, musculoskeletal pain, kidney stone, AAA, etc. etc.
Amount and/or Complexity of Data to be Reviewed and Analyzed
� I performed an independent evaluation of and my interpretation is:
EKG:
CT:
Xrays:read by me, nad
Laboratory Studies:
Other:
� Review of other/old records reveals: Patient had an ultrasound very recently with these findings which make AAA and kidney stone extremely unlikelyFINDINGS:
Liver: The liver measures 15 centimeters in greatest dimension. Acoustic penetration is within normal limits, and the liver is of normal echogenicity relative to the right kidney.
Anechoic cyst measures 1.7 cm in diameter within the right hepatic lobe. There is a smooth hepatic capsular contour.
Portal vein: Hepatopetal flow is demonstrated within the main portal vein.
The gallbladder has been removed. No abnormal fluid collection is demonstrated within the gallbladder fossa.
Common bile duct measures 9 mm in diameter, compared to 5 mm on prior ultrasound.
The pancreas was not visualized due to overlying bowel gas.
The spleen is normal in size, measuring 12.8 cm.
No signs of hydronephrosis, aggressive mass or calculi are demonstrated in either kidney. The right kidney measured 11.5 cm in greatest length.
The left kidney measured 11.7 cm in greatest length.
No free fluid is seen in the abdomen.
The visualized portions of the aorta and IVC are of normal caliber.
IMPRESSION:
1. Status post cholecystectomy. Common bile duct measures 9 mm in diameter, compared to 5 mm on prior ultrasound dated 08/01/2023. Please correlate with serum bilirubin to exclude biliary obstruction.
2. No sonographic abnormalities demonstrated within the liver.
3. Pancreas was not seen due to overlying bowel gas.
� Clinical information was obtained by an independent historian: who is bedside. She states the patient has an appointment with GI to follow-up on his ultrasound findings at 330 today.
� Prescriptions/Medications Considered but not given:
� Further testing considered but not performed:
Risk of Complications and/or Morbidity or Mortality of Patient Management
� Social determinants of health affecting care:
� Discussion with other providers (PCP, Hospitalists, Consultants, etc):
� Escalation of care including admission/observation vs risk of discharge considered: Discussed with patient and risks of sedating medications such as muscle relaxants or narcotics. Especially given his history of DOAC use
this is a strong consideration of caution. Given the risk and benefits, he elects to take the medicine. No signs or symptoms to suggest AAA, cauda equina, etc. Discussed with patient importance of follow-up and reasons return to the ER.
ED Attending Note
-
Portions of this chart may have been created with voice recognition software.� Occasional wrong word or��sound alike� substitutions may have occurred due to the inherent limitations of voice recognition software.
Discharge Plan
Departure
Patient Disposition: Home (Routine Discharge)
Date of Disposition: 04/08/25
Time of Disposition: 12:01
Patient with high blood pressure during this ER visit?: Yes
Condition: Good
Discharge Problem:
Low back pain
Instructions: Low Back Pain (DC), BLOOD PRESSURE
Prescriptions:
New
cyclobenzaprine 10 mg tablet
10 mg PO TID PRN (Reason: pain) Qty: 13 0RF
No Action
aspirin 81 mg Tablet,Delayed Release (Dr/Ec)
81 mg PO HS
nitroglycerin [Nitrostat] 0.4 mg Tablet, Sublingual
0.4 mg SUBLINGUAL [id number] PRN (Reason: Chest Pain)
atorvastatin 40 MG tablet
40 mg PO HS
Centrum Silver Men [id number] mcg Tablet
1 tab PO DAILY
Jardiance 10 mg Tablet
10 mg PO DAILY
triamcinolone acetonide 0.1 % cream
1 applic TOPICAL BIDPRN PRN (Reason: rash areas on back, arms)
levothyroxine [Synthroid] 50 mcg Tablet
50 mcg PO DAILY
Eliquis 5 mg Tablet
5 mg PO BID Qty: 60 0RF
coydsyrrw-gxjok-imth-water Gel
1 applic TOPICAL TID
amiodarone 200 mg tablet
200 mg PO BID
metoprolol succinate 25 mg tablet extended release 24 hr
25 mg PO HS
Referrals:
Vaughn Chiang, [Family Provider, Family Practice] - Follow up in 2-3 days
Activity Restrictions/Additional Instructions:
IF YOU DEVELOP ABDOMINAL PAIN, CHEST PAIN, INCREASING OR NEW BACK PAIN, NUMBNESS, TINGLING, FEVER, DIFFICULTY URINATING, INCONTINENCE, GET WORSE, DO NOT GET BETTER, OR OTHER WORRISOME SIGNS, PLEASE RETURN TO THE ER IMMEDIATELY
Interventions
Interventions:
*Risk Screen - Suicide Last Done: 04/08/25 10:43
*General Assessment Last Done: 04/08/25 10:43
*Neglect/Abuse Screening Last Done: 04/08/25 11:27
*ED- Fall Risk Assessment Last Done: 04/08/25 11:27
*ED COVID-19 Vaccine History Last Done: 04/08/25 11:06
ED-Musculoskeletal Assessment Last Done: 04/08/25 11:27
Discharge Date and Time
Print Language: GREENLANDIC
[2025-04-08] MEDS: FLEXERIL 10 MG PO (11:26)
== END 2025-04-08 12:12 | disposition home or self-care (01) ==
LOC: EMR 10:40
PROVIDERS: EMERGENCY PHYSICIAN Emergency Medicine; FAMILY PHYSICIAN Family Medicine
DX: M54.50 Low back pain, unspecified (principal); I48.0 Paroxysmal atrial fibrillation; I11.0 Hypertensive heart disease with heart failure; I50.9 Heart failure, unspecified; E03.9 Hypothyroidism, unspecified; E11.9 Type 2 diabetes mellitus without complications; E66.9 Obesity, unspecified; E78.00 Pure hypercholesterolemia, unspecified; I25.2 Old myocardial infarction; I25.5 Ischemic cardiomyopathy; Z82.49 Family history of ischemic heart disease and other diseases of the circulatory system; Z87.19 Personal history of other diseases of the digestive system; Z90.49 Acquired absence of other specified parts of digestive tract; Z95.5 Presence of coronary angioplasty implant and graft; Z96.611 Presence of right artificial shoulder joint; Z96.643 Presence of artificial hip joint, bilateral; Z96.652 Presence of left artificial knee joint
CPT/HCPCS: 99283; 72110

== ENCOUNTER → 2025-06-02 09:30 | Outpatient (REF) | payer MEDICARE, SELFPAY | LOC: EMG 09:30 | PROVIDERS: ATTENDING PHYSICIAN Family Medicine | DX: R20.2 Paresthesia of skin (principal); R29.898 Other symptoms and signs involving the musculoskeletal system; G62.9 Polyneuropathy, unspecified; R20.0 Anesthesia of skin | CPT/HCPCS: 95886; 95911 ==

== ENCOUNTER → 2025-08-25 12:58 | Outpatient (REF) | payer MEDICARE, SELFPAY | LOC: RAD 12:58 | PROVIDERS: ATTENDING PHYSICIAN Family Medicine | DX: S90.455A Superficial foreign body, left lesser toe(s), initial encounter (principal) | CPT/HCPCS: 73660 ==